=== PATIENT | female | born 1955 | race American Indian/Alaskan Native ===

== ENCOUNTER 2018-01-01 13:45 | Inpatient (IN) | payer OTHER ==
[2018-01-01 13:45] VITALS: BMI 40.2
--- NOTE | 2018-01-01 14:24 | C.PDOC ---
History Of Present Illness 62 Y/O FEMALE WITH HISTORY OF RENAL TRANSPLANT PRESENTS TO ED REFERRED BY DR HAWK FOR POSSIBLE URINARY RETENTION. PATIENT STATES LAST URINE OUTPUT WAS 2 DAYS AGO. PATIENT COMPLAINTS OF BLADDER FULLNESS. PATIENT ADMITS TO NAUSEA AND VOMITING, DENIES FEVER. PATIENT STATES "LAST TIME THIS HAPPENED ALL I NEEDED WAS FLUID AND NEVER NEEDED A CATHETER". EXAM MILD DIST NONTOXIC ABD REMAINDER NEG Time Seen by Provider: 01/01/18 14:09 Chief Complaint (Nursing): Female Genitourinary History Per: Patient History/Exam Limitations: no limitations Onset/Duration Of Symptoms: Days Current Symptoms Are (Timing): Still Present Associated Symptoms: Nausea, Vomiting, Urinary Symptoms Past Medical History Reviewed: Historical Data, Nursing Documentation, Vital Signs Vital Signs: Last Vital Signs Temp 98.7 F 01/01/18 14:16 Pulse 84 01/01/18 14:16 Resp 18 01/01/18 14:16 BP 173/80 H 01/01/18 14:07 Pulse Ox 98 01/01/18 16:01 - Medical History PMH: HTN Surgical History: No Surg Hx Family History: States: No Known Family Hx - Social History Hx Alcohol Use: No Hx Substance Use: No Review Of Systems Constitutional: Negative for: Fever, Chills Gastrointestinal: Positive for: Nausea, Vomiting Genitourinary: Positive for: Other (Urinary retention). Negative for: Dysuria Musculoskeletal: Negative for: Back Pain Skin: Negative for: Rash Physical Exam - Physical Exam Appears: Non-toxic, Other (In mild distress) Skin: Warm, Dry, No Rash Head: Atraumatic, Normacephalic Oral Mucosa: Moist Neck: Normal ROM, Supple Cardiovascular: Rhythm Regular Respiratory: Normal Breath Sounds, No Rales, No Rhonchi, No Wheezing Gastrointestinal/Abdominal: Soft, No Tenderness, No Guarding, No Rebound Back: No CVA Tenderness Extremity: Normal ROM, Capillary Refill (<2 seconds) Neurological/Psych: Oriented x3, Normal Speech, Normal Cognition ED Course And Treatment - Laboratory Results Result Diagrams: 01/01/18 14:36 01/01/18 15:02 O2 Sat by Pulse Oximetry: 98 (RA) Pulse Ox Interpretation: Normal Progress - Re-Evaluation Re-evaluation Note: 01/01/18 12:30 D/W DR HAWK FOR REFERRAL 01/01/18 14:22 PT OFFERED CATHETER FOR BLADDER RELIEF, STATES WOULD PREFER TO WAIT FOR BLADDER SCANNER AVAILABLILITY 01/01/18 15:27 BLADDER SCAN DONE BY ME, WITHIN NORMAL LIMITS. 01/01/18 15:59 D/W DR HAWK AWARE OF LAB FINDINGS. ADMIT MEDICINE, WILL CONSULT 01/01/18 16:[address] LUNA 01/01/18 16:08 D/W DR Gonzalez [place]LE C/F PMD AWARE OF ER FINDINGS WILL ADMIT - Data Reviewed Data Reviewed: Lab, Diagnostic imaging, EKG, Old records - Continuity of Care Discussed patient case with:: Patient, Family-HIPPA compliant, Covering for PMD Discussed pt. case with design sales consultant/specialty: Urology Disposition Counseled Patient/Family Regarding: Studies Performed, Diagnosis - Disposition Disposition: HOSPITALIZED Disposition Time: 16:08 Condition: STABLE Forms: [facility] ([place]) - POA Present On Arrival: None - Clinical Impression Clinical Impression: Renal failure - Scribe Statement The provider has reviewed the documentation as recorded by the Scribroc Durbin All medical record entries made by the Scribe were at my direction and personally dictated by me. I have reviewed the chart and agree that the record accurately reflects my personal performance of the history, physical exam, medical decision making, and the department course for this patient. I have also personally directed, reviewed, and agree with the discharge instructions and disposition. Decision To Admit - Pt Status Changed To: Hospital Disposition Of: Inpatient - Admit Certification Admit to Inpatient:: After my assessment, the patient will require hospitalization for at least two midnights. This is because of the severity of symptoms shown, intensity of services needed, and/or the medical risk in this patient being treated as an outpatient. - InPatient: Physician Admission Certification: I certify that this patient requires 2 or more midnights of care for the following reason:: SEE NOTE - . Bed Request Type: Regular Admitting Physician: Delvin Del Valle Patient Diagnosis: Renal failure
[2018-01-01 14:42] LABS: BASO # 0.1 K/uL (0.0-0.2); BASO % 0.9 % (0.0-2.0); EOS % 0.1 % (0.0-4.0); HEMOGLOBIN 12.2 g/dL (11.0-16.0); LYMPH # 0.7 K/uL (1.0-4.3); LYMPH % 5.7 % (20.0-40.0); MEAN CELL VOLUME 78.8 fL (81.0-99.0); MEAN CORPUSCULAR HEMOGLOBIN 27.2 pg (27.0-31.0); MEAN CORPUSCULAR HGB CONC 34.5 g/dL (33.0-37.0); MEAN PLATELET VOLUME 8.3 fL (7.2-11.7); MONO # 0.5 K/uL (0.0-0.8); MONO % 4.5 % (0.0-10.0); NEUT # 10.6 K/uL (1.8-7.0); NEUT % 88.8 % (50.0-75.0); NRBC % 0.1 % (0.0-2.0); PLATELET COUNT 160 K/uL (130-400); RBC 4.49 Mil/uL (3.80-5.20); RED CELL DISTRIBUTION WIDTH 16.4 % (11.5-14.5); WHITE BLOOD COUNT 11.9 K/uL (4.8-10.8)
[2018-01-01] MEDS ORDERED: Sodium Chloride 0.9% 1,000 ML IV SCH (15:15)
[2018-01-01] MEDS ORDERED: Sodium Chloride 0.9% 250 ML IV ONE ×2 (15:28→15:57)
[2018-01-01 15:33] LABS: LYMPHOCYTE 8 % (20-40); MONOCYTE 3 % (0-10); NEUTROPHIL 89 % (50-75); TOTAL CELLS COUNTED 100
[2018-01-01 15:34] LABS: PLATELET ESTIMATE NORMAL (NORMAL)
[2018-01-01 15:45] LABS: CALCIUM 6.1 mg/dl (8.6-10.4)
[2018-01-01] MEDS: Sodium Chloride 0.9% 1,000 ML IV SCH (17:58)
[2018-01-01] MEDS ORDERED: Sodium Chloride 0.9% 1,000 ML ONE (18:10)
[2018-01-01 19:06] LABS: SQUAMOUS EPITHIAL < 1 /hpf (0-5); URINE AMORPHOUS SEDIMENT RARE /ul (<OCC); URINE BACTERIA RARE (<OCC); URINE BILIRUBIN NEGATIVE (NEGATIVE); URINE BLOOD 2+ (NEGATIVE); URINE CLARITY Hazy (Clear); URINE COLOR YELLOW (YELLOW); URINE GLUCOSE (UA) NORMAL (Normal); URINE LEUKOCYTE ESTERASE 1+ Leu/uL (Negative); URINE PROTEIN NEGATIVE (NEGATIVE); URINE UROBILINOGEN NORMAL mg/dL (0.2-1.0)
[2018-01-01] MEDS ORDERED: Metoprolol Succinate 100 mg XL Tab PO SCH (22:00)
[2018-01-02] MEDS: Sodium Chloride 0.9% 1,000 ML IV SCH ×5 (01:45→17:15)
--- NOTE | 2018-01-02 10:30 | CP.PCM.CON ---
History of Present Illness - History of Present Illness History of Present Illness: 62 Y/O FEMALE WITH HISTORY OF RENAL TRANSPLANT PRESENTS TO ED REFERRED BY DR HAWK FOR POSSIBLE URINARY RETENTION. PATIENT STATES LAST URINE OUTPUT WAS 2 DAYS AGO. PATIENT COMPLAINTS OF BLADDER FULLNESS. PATIENT ADMITS TO NAUSEA AND VOMITING, DENIES FEVER. PATIENT STATES "LAST TIME THIS HAPPENED ALL I NEEDED WAS FLUID AND NEVER NEEDED A CATHETER". PMH: DONOR KIDNEY TRANSPLANT 2010- NO REJECTION EPISODES HTN CKD 3 DM 2 POST TRANSPLANT SEC HPT DIVERTICULAR DISEASE URINARY RETENTION- PRIOR EPISODE NATE PSH: KIDNEY TRANSPLANT COLECTOMY AV FISTULA AP FH: UNCLE HAD CKD- WAS ON DIALYSIS SOCIAL- NEGATIVE FOR ETOH, SMOKING, ILLICIT DRUG USE Review of Systems - Constitutional Constitutional: Lethargy, Weakness - EENT Eyes: Decreased Night Vision, Dry Eye Ears: absent: As Per HPI, Decreased Hearing, Ear Discharge, Ear Pain, Tinnitus, Abnormal Hearing, Disequilibrium, Dizziness, Other Nose/Mouth/Throat: absent: As Per HPI, Epistaxis, Nasal Congestion, Nasal Discharge, Nasal Obstruction, Nasal Trauma, Nose Pain, Post Nasal Drip, Sinus Pain, Sinus Pressure, Bleeding Gums, Change in Voice, Dental Pain, Dry Mouth, Dysphagia, Halitosis, Hoarsness, Lip Swelling, Mouth Lesions, Mouth Pain, Odynophagia, Sore Throat, Throat Swelling, Tongue Swelling, Facial Pain, Neck Pain, Neck Mass, Other - Cardiovascular Cardiovascular: absent: As Per HPI, Acrocyanosis, Chest Pain, Chest Pain at Rest , Chest Pain with Activity, Claudication, Diaphoresis, Dyspnea, Dyspnea on Exertion, Edema, Irregular Heart Rhythm, Pain Radiating to Arm/Neck/Jaw, Leg Edema, Leg Ulcers, Lightheadedness, Orthopnea, Palpitations, Paroxysmal Nocturnal Dyspnea, Pedal Edema, Radiating Pain, Rapid Heart Rate, Slow Heart Rate, Syncope, Other - Respiratory Respiratory: absent: As Per HPI, Cough, Dyspnea, Hemoptysis, Dyspnea on Exertion , Wheezing, Snoring, Stridor, Pain on Inspiration, Chest Congestion, Excessive Mucous Production, Change in Mucous Color, Pain with Coughing, Other - Gastrointestinal Gastrointestinal: absent: As Per HPI, Abdominal Pain, Belching, Bloating, Change in Bowel Habits, Change in Stool Character, Coffee Ground Emesis, Constipation, Cramping, Diarrhea, Dyspepsia, Dysphagia, Early Satiety, Excessive Flatus, Fecal Incontinence, Heartburn, Hematemesis, Hematochezia, Loose Stools, Melena, Nausea, Odynophagia, Temesmus, Vomiting, Other - Genitourinary Genitourinary: As Per HPI - Musculoskeletal Musculoskeletal: Muscle Cramps, Muscle Weakness, Myalgias - Integumentary Integumentary: absent: As Per HPI, Acne, Alopecia, Bleeding Lesions, Change in Hair, Change in Nails, Change in Pigmentation, Changing Lesions, Dry Skin, Erythema, Furuncle, Hirsutism, Lesions, New Lesions, Non-Healing Lesions, Photosensitivity, Pruritus, Rash, Skin Pain, Skin Ulcer, Sores, Striae, Swelling , Unusual Bruising, Wounds, Jaundice, Other - Neurological Neurological: absent: As Per HPI, Abnormal Gait, Abnormal Hearing, Abnormal Movements, Abnormal Speech, Behavioral Changes, Burning Sensations, Confusion, Convulsions, Disequilibrium, Dizziness, Numbness, Focal Weakness, Frequent Falls , Headaches, Lack of Coordination, Loss of Vision, Memory Loss, Paresthesias, Radicular Pain, Restless Legs, Sensory Deficit, Syncope, Tingling, Tremor, Vertigo, Weakness, Other Visual Disturbances, Other - Endocrine Endocrine: absent: As Per HPI, Change in Body Appearance, Change in Libido, Cold Intolorance, Deepening of Voice, Excessive Sweating, Fatigue, Flushing, Heat Intolorance, Increase in Ring/Shoe/Hat Size, Palpitations, Polydipsia, Polyphagia, Polyuria, Other Past Patient History - Infectious Disease Hx of Infectious Diseases: None - Past Medical History & Family History Past Medical History?: Yes Pertinent Family History: uncle was on dialysis - Past Social History Smoking Status: Never Smoked Chewing Tobacco Use: No Cigar Use: No Alcohol: None Drugs: Denies Home Situation {Lives}: With Family - CARDIAC Hx Hypertension: Yes - RENAL Hx Dialysis: Yes Hx Renal Failure: Yes Other/Comment: kidney transplant - MUSCULOSKELETAL/RHEUMATOLOGICAL Hx Falls: No - PSYCHIATRIC Hx Substance Use: No - SURGICAL HISTORY Hx Kidney Transplant: Yes (2010) Hx Vascular Access Device: Yes (fistula left arm) - ANESTHESIA Hx Anesthesia: Yes Meds Allergies/Adverse Reactions: Allergies Allergy/AdvReac Type Severity Reaction Status Date / Time Penicillins Allergy Verified 01/01/18 14:15 - Medications Medications: Current Medications Amlodipine Besylate (Norvasc) 5 mg PO DAILY [facility] Last Admin: 01/02/18 09:57 Dose: 5 mg Calcitriol (Rocaltrol) 0.25 mcg PO DAILY [facility] Last Admin: 01/02/18 09:56 Dose: 0.25 mcg Heparin Sodium (Porcine) (Heparin) 5,000 units SC Q12 [facility] Last Admin: 01/02/18 09:57 Dose: 5,000 units Hydralazine HCl (Apresoline) 50 mg PO Q12H [facility] Last Admin: 01/02/18 09:59 Dose: 50 mg Sodium Chloride (Sodium Chloride 0.9%) 1,000 mls @ 125 mls/hr IV .Q8H [facility] Last Admin: 01/02/18 09:57 Dose: Not Given Metoprolol Tartrate (Lopressor) 50 mg PO Q12H [facility] Last Admin: 01/02/18 09:59 Dose: 50 mg Prednisone (Prednisone Tab) 5 mg PO DAILY [facility] Tacrolimus (Prograf) 5 mg PO Q12 [facility] Last Admin: 01/02/18 09:56 Dose: 5 mg Tacrolimus (Prograf Cap) 3 mg PO Q12 [facility] Last Admin: 01/02/18 09:55 Dose: 3 mg Physical Exam - Constitutional Appears: No Acute Distress, Chronically Ill - Head Exam Head Exam: ATRAUMATIC, NORMAL INSPECTION - Eye Exam Eye Exam: EOMI, Normal appearance - Neck Exam Neck exam: Positive for: Normal Inspection. Negative for: Tenderness - Respiratory Exam Respiratory Exam: Clear to Auscultation Bilateral, NORMAL BREATHING PATTERN - Cardiovascular Exam Cardiovascular Exam: REGULAR RHYTHM, +S1 - GI/Abdominal Exam GI & Abdominal Exam: Soft. absent: Tenderness - Extremities Exam Extremities exam: Positive for: normal inspection. Negative for: tenderness - Neurological Exam Neurological exam: Alert, Oriented x3 - Skin Skin Exam: Dry, Warm Results - Vital Signs Recent Vital Signs: Last Vital Signs Temp 98.7 F 01/02/18 08:00 Pulse 71 01/02/18 08:00 Resp 20 01/02/18 08:00 BP 156/77 H 01/02/18 08:00 Pulse Ox 98 01/02/18 08:00 - Labs Result Diagrams: 01/01/18 14:36 01/01/18 15:02 Labs: Laboratory Results - last 24 hr 01/01/18 01/01/18 01/01/18 14:36 15:02 18:56 WBC 11.9 H RBC 4.49 Hgb 12.2 Hct 35.4 MCV 78.8 L MCH 27.2 MCHC 34.5 RDW 16.4 H Plt Count 160 MPV 8.3 Neut % (Auto) 88.8 H Lymph % (Auto) 5.[address] % (Auto) 4.5 Eos % (Auto) 0.1 Baso % (Auto) 0.9 Neut # (Auto) 10.6 H Lymph # (Auto) 0.[address] # (Auto) 0.5 Eos # (Auto) 0.0 Baso # (Auto) 0.1 Neutrophils % (Manual) 89 H Lymphocytes % (Manual) 8 L Monocytes % (Manual) 3 Platelet Estimate Normal Sodium 128 L Potassium 5.0 Chloride 92 L Carbon Dioxide 18 L Anion Gap 23 H BUN 48 H Creatinine 8.0 H* Est GFR ( Amer) 6 Est GFR (Non-Af Amer) 5 Random Glucose 157 H Calcium 6.1 L Urine Color Yellow Urine Clarity Hazy Urine pH 5.0 Ur Specific [place] 1.004 Urine Protein Negative Urine Glucose (UA) Normal Urine Ketones Negative Urine Blood 2+ H Urine Nitrate Negative Urine Bilirubin Negative Urine Urobilinogen Normal Ur Leukocyte Esterase 1+ H Urine WBC (Auto) 11 H Urine RBC (Auto) 15 H Ur Squamous Epith Cells < 1 Amorphous Sediment Rare H Urine Bacteria Rare Assessment & Plan (1) NATE (acute kidney injury) Status: Acute (2) History of kidney transplant Status: Acute (3) Urinary retention Status: Acute (4) Dehydration Status: Acute (5) DM type 2 (diabetes mellitus, type 2) Status: Acute (6) HTN (hypertension) Status: Acute - Assessment and Plan (Free Text) Plan: Continue IV NS hydration repeat chemistries urine studies renal TP US FK level continue transplant meds
[2018-01-02 11:49] LABS: ALBUMIN 3.5 g/dL (3.5-5.0); CALCIUM 6.2 mg/dl (8.6-10.4)
--- NOTE | 2018-01-02 15:15 | CP.PCM.HP ---
History of Present Illness - History of Present Illness History of Present Illness: HPI: 62 y/o female s/p renal tranplant 2010, Hypertension, Diabetes c/o vomitting 1 day. Also c/o mild abdominal pain and no urinary output. No fever. Present on Admission - Present on Admission Any Indicators Present on Admission: Yes History of DVT/PE: No History of Uncontrolled Diabetes: No Urinary Catheter: Yes Review of Systems - Review of Systems All systems: reviewed and no additional remarkable complaints except (c/o abdominal pain, GI upsets) Past Patient History - Infectious Disease Hx of Infectious Diseases: None - Past Medical History & Family History Past Medical History?: Yes - Past Social History Smoking Status: Never Smoked Chewing Tobacco Use: No Cigar Use: No Alcohol: None Drugs: Denies Home Situation {Lives}: With Family - CARDIAC Hx Hypertension: Yes - RENAL Hx Dialysis: Yes Hx Renal Failure: Yes Other/Comment: kidney transplant - MUSCULOSKELETAL/RHEUMATOLOGICAL Hx Falls: No - PSYCHIATRIC Hx Substance Use: No - SURGICAL HISTORY Hx Kidney Transplant: Yes (2010) Hx Vascular Access Device: Yes (fistula left arm) - ANESTHESIA Hx Anesthesia: Yes Meds Home Medications: Home Medication List Medication Instructions Recorded Confirmed Type Calcium Acetate [Phoslo] 667 mg PO TIDCC tab 01/06/18 Rx Heparin 5,000 units SC Q12 vial 01/06/18 Rx Metoprolol Tartrate [Lopressor] 50 mg PO Q12H tab 01/06/18 Rx Metoprolol Tartrate [Lopressor] 75 mg PO Q12H tab 01/06/18 Rx Tacrolimus [Prograf Cap] 3 mg PO Q12 cap 01/06/18 Rx Tacrolimus [Prograf Cap] 5 mg PO Q12 cap 01/06/18 Rx Tacrolimus [Prograf] 5 mg PO Q12 cap 01/06/18 Rx Tacrolimus [Prograf] 5 mg PO Q12 cap 01/06/18 Rx amLODIPine [Norvasc] 5 mg PO DAILY tab 01/06/18 Rx hydrALAZINE [Apresoline] 50 mg PO Q12H tab 01/06/18 Rx predniSONE [predniSONE Tab] 5 mg PO DAILY tab 01/06/18 Rx Allergies/Adverse Reactions: Allergies Allergy/AdvReac Type Severity Reaction Status Date / Time Penicillins Allergy Verified 01/01/18 14:15 Physical Exam - Constitutional Appears: No Acute Distress - Head Exam Head Exam: NORMAL INSPECTION - Eye Exam Eye Exam: Normal appearance - Neck Exam Neck exam: Positive for: Normal Inspection - Respiratory Exam Respiratory Exam: NORMAL BREATHING PATTERN - GI/Abdominal Exam GI & Abdominal Exam: Soft - Rectal Exam Rectal Exam: Deferred - Extremities Exam Extremities exam: Positive for: normal inspection - Neurological Exam Neurological exam: Alert Results - Vital Signs Recent Vital Signs: Last Vital Signs Temp 98.7 F 01/02/18 08:00 Pulse 71 01/02/18 08:00 Resp 20 01/02/18 08:00 BP 156/77 H 01/02/18 08:00 Pulse Ox 98 01/02/18 08:00 - Labs Result Diagrams: 01/05/18 08:48 01/05/18 08:48 Labs: Laboratory Results - last 24 hr 01/01/18 01/01/18 01/01/18 14:36 15:02 18:56 Neutrophils % (Manual) 89 H Lymphocytes % (Manual) 8 L Monocytes % (Manual) 3 Platelet Estimate Normal Sodium 128 L Potassium 5.0 Chloride 92 L Carbon Dioxide 18 L Anion Gap 23 H BUN 48 H Creatinine 8.0 H* Est GFR ( Amer) 6 Est GFR (Non-Af Amer) 5 Random Glucose 157 H Calcium 6.1 L Total Bilirubin AST ALT Alkaline Phosphatase Total Protein Albumin Globulin Albumin/Globulin Ratio Urine Color Yellow Urine Clarity Hazy Urine pH 5.0 Ur Specific [place] 1.004 Urine Protein Negative Urine Glucose (UA) Normal Urine Ketones Negative Urine Blood 2+ H Urine Nitrate Negative Urine Bilirubin Negative Urine Urobilinogen Normal Ur Leukocyte Esterase 1+ H Urine WBC (Auto) 11 H Urine RBC (Auto) 15 H Ur Squamous Epith Cells < 1 Amorphous Sediment Rare H Urine Bacteria Rare 01/02/18 11:15 Neutrophils % (Manual) Lymphocytes % (Manual) Monocytes % (Manual) Platelet Estimate Sodium 140 Potassium 4.3 Chloride 102 Carbon Dioxide 21 L Anion Gap 22 H BUN 45 H Creatinine 6.2 H Est GFR ( Amer) 8 Est GFR (Non-Af Amer) 7 Random Glucose 127 H Calcium 6.2 L Total Bilirubin 0.9 AST 18 ALT 6 L Alkaline Phosphatase 63 Total Protein 6.9 Albumin 3.5 Globulin 3.4 Albumin/Globulin Ratio 1.0 Urine Color Urine Clarity Urine pH Ur Specific [place] Urine Protein Urine Glucose (UA) Urine Ketones Urine Blood Urine Nitrate Urine Bilirubin Urine Urobilinogen Ur Leukocyte Esterase Urine WBC (Auto) Urine RBC (Auto) Ur Squamous Epith Cells Amorphous Sediment Urine Bacteria Assessment & Plan (1) NATE (acute kidney injury) Status: Acute (2) Dehydration Status: Acute (3) HTN (hypertension) Status: Chronic (4) DM type 2 (diabetes mellitus, type 2) Status: Chronic - Assessment and Plan (Free Text) Assessment: A/P: Continue IV hydration. Continie medications. Appreciate Nephrology notes
--- NOTE | 2018-01-02 15:47 | US ---
PROCEDURE: Ultrasound of the Kidneys HISTORY: batsheva COMPARISON: None available. TECHNIQUE: Sonogram of the kidneys. FINDINGS: A transplant kidney is identified at the right lower quadrant/right hemipelvis measures 11.3 x 7.0 x 7.0 cm. Corticomedullary echotexture is slightly diminished in terms of definition. Mild hydronephrosis is appreciated. No parity nephric fluid collection identified or definite urolithiasis. OTHER FINDINGS: None. IMPRESSION: Mild hydronephrosis identified within the transplant kidney at the right lower quadrant abdomen/ upper right pelvis. Somewhat diminished corticomedullary definition of uncertain origin. No urolithiasis appreciable or perinephric fluid collection.
[2018-01-02 16:34] LABS: URINE BACTERIA RARE (<OCC); URINE BILIRUBIN NEGATIVE (NEGATIVE); URINE BLOOD 3+ (NEGATIVE); URINE CLARITY Clear (Clear); URINE COLOR Colorless (YELLOW); URINE GLUCOSE (UA) NORMAL (Normal); URINE LEUKOCYTE ESTERASE NEG Leu/uL (Negative); URINE PROTEIN NEGATIVE (NEGATIVE); URINE UROBILINOGEN NORMAL mg/dL (0.2-1.0)
[2018-01-03] MEDS: Sodium Chloride 0.9% 1,000 ML IV SCH ×6 (01:15→21:45)
--- NOTE | 2018-01-03 08:01 | CP.PCM.PN ---
Subjective - Date & Time of Evaluation Date of Evaluation: 01/03/18 Time of Evaluation: 08:34 - Subjective Subjective: Pt no complain; no CP, no SOB, * (+) good urine output Objective - Vital Signs/Intake and Output Vital Signs (last 24 hours): Temp Pulse Resp BP Pulse Ox 98.5 F 72 20 150/72 96 01/03/18 07:41 01/03/18 07:41 01/03/18 07:41 01/03/18 07:41 01/03/18 07:41 Intake and Output: 01/03/18 01/03/18 06:59 18:59 Intake Total 2140 Output Total 3200 Balance -1060 - Medications Medications: Current Medications Amlodipine Besylate (Norvasc) 5 mg PO DAILY [facility] Last Admin: 01/02/18 09:57 Dose: 5 mg Calcitriol (Rocaltrol) 0.25 mcg PO DAILY [facility] Last Admin: 01/02/18 09:56 Dose: 0.25 mcg Heparin Sodium (Porcine) (Heparin) 5,000 units SC Q12 [facility] Last Admin: 01/02/18 21:39 Dose: 5,000 units Hydralazine HCl (Apresoline) 50 mg PO Q12H [facility] Last Admin: 01/02/18 21:37 Dose: 50 mg Sodium Chloride (Sodium Chloride 0.9%) 1,000 mls @ 125 mls/hr IV .Q8H [facility] Last Admin: 01/03/18 03:13 Dose: 125 mls/hr Metoprolol Tartrate (Lopressor) 50 mg PO Q12H [facility] Last Admin: 01/02/18 21:37 Dose: 50 mg Prednisone (Prednisone Tab) 5 mg PO DAILY [facility] Last Admin: 01/02/18 11:30 Dose: 5 mg Tacrolimus (Prograf) 5 mg PO Q12 [facility] Last Admin: 01/02/18 21:37 Dose: 5 mg Tacrolimus (Prograf Cap) 3 mg PO Q12 [facility] Last Admin: 01/02/18 21:37 Dose: 3 mg - Labs Labs: 01/01/18 14:36 01/02/18 11:15 - Constitutional Appears: No Acute Distress - Eye Exam Eye Exam: Normal appearance - ENT Exam ENT Exam: Mucous Membranes Moist - Neck Exam Neck Exam: Full ROM, Lymphadenopathy. absent: Meningismus, Thyromegaly - Respiratory Exam Respiratory Exam: Clear to Ausculation Bilateral. absent: Rhonchi, Wheezes - Cardiovascular Exam Cardiovascular Exam: REGULAR RHYTHM, +S1, +S2. absent: Gallop, JVD - GI/Abdominal Exam GI & Abdominal Exam: Soft. absent: Tenderness, Mass - Extremities Exam Extremities Exam: Full ROM, Normal Capillary Refill. absent: Pedal Edema Assessment and Plan - Assessment and Plan (Free Text) Plan: ATN ; Dehydration s/p transplant; HTN Stop marin; Cont hydration and serial labs
[2018-01-03 08:26] LABS: MEAN CELL VOLUME 80.2 fL (81.0-99.0); MEAN CORPUSCULAR HEMOGLOBIN 27.8 pg (27.0-31.0); MEAN CORPUSCULAR HGB CONC 34.7 g/dL (33.0-37.0); MEAN PLATELET VOLUME 8.5 fL (7.2-11.7); RBC 3.63 Mil/uL (3.80-5.20); RED CELL DISTRIBUTION WIDTH 16.9 % (11.5-14.5)
[2018-01-03 08:31] LABS: HEMOGLOBIN 10.1 g/dL (11.0-16.0); WHITE BLOOD COUNT 4.8 K/uL (4.8-10.8)
[2018-01-03 10:14] LABS: ALBUMIN 3.3 g/dL (3.5-5.0); CALCIUM 6.3 mg/dl (8.6-10.4)
--- NOTE | 2018-01-03 13:28 | CP.PCM.PN ---
Subjective - Date & Time of Evaluation Date of Evaluation: 01/03/18 Time of Evaluation: 13:25 - Subjective Subjective: Feels much better Excellent UO marin taken out creat decreased to 3.5 from 8 Renal US - mild hydro no n, v, f, chills, diarrhea, CPs, SOB Objective - Vital Signs/Intake and Output Vital Signs (last 24 hours): Temp Pulse Resp BP Pulse Ox 98.5 F 72 20 150/72 96 01/03/18 07:41 01/03/18 07:41 01/03/18 07:41 01/03/18 07:41 01/03/18 07:41 Intake and Output: 01/03/18 01/03/18 06:59 18:59 Intake Total 2140 Output Total 3200 Balance -1060 - Medications Medications: Current Medications Amlodipine Besylate (Norvasc) 5 mg PO DAILY [facility] Last Admin: 01/03/18 10:52 Dose: 5 mg Calcitriol (Rocaltrol) 0.25 mcg PO DAILY [facility] Last Admin: 01/03/18 10:54 Dose: 0.25 mcg Heparin Sodium (Porcine) (Heparin) 5,000 units SC Q12 [facility] Last Admin: 01/03/18 10:53 Dose: 5,000 units Hydralazine HCl (Apresoline) 50 mg PO Q12H [facility] Last Admin: 01/03/18 10:52 Dose: 50 mg Sodium Chloride (Sodium Chloride 0.9%) 1,000 mls @ 125 mls/hr IV .Q8H [facility] Last Admin: 01/03/18 10:56 Dose: 125 mls/hr Metoprolol Tartrate (Lopressor) 50 mg PO Q12H [facility] Last Admin: 01/03/18 10:53 Dose: 50 mg Prednisone (Prednisone Tab) 5 mg PO DAILY [facility] Last Admin: 01/03/18 10:54 Dose: 5 mg Tacrolimus (Prograf) 5 mg PO Q12 [facility] Last Admin: 01/03/18 10:54 Dose: 5 mg Tacrolimus (Prograf Cap) 3 mg PO Q12 [facility] Last Admin: 01/03/18 10:54 Dose: 3 mg - Labs Labs: 01/03/18 08:16 01/03/18 08:16 - Constitutional Appears: No Acute Distress, Chronically Ill - Head Exam Head Exam: ATRAUMATIC, NORMAL INSPECTION - Eye Exam Eye Exam: EOMI, Normal appearance - Neck Exam Neck Exam: Normal Inspection. absent: Tenderness - Cardiovascular Exam Cardiovascular Exam: REGULAR RHYTHM, +S1 - GI/Abdominal Exam GI & Abdominal Exam: Soft. absent: Tenderness - Extremities Exam Extremities Exam: Normal Inspection. absent: Tenderness - Neurological Exam Neurological Exam: Alert, CN II-XII Intact - Skin Skin Exam: Dry, Warm Assessment and Plan (1) NATE (acute kidney injury) Status: Acute (2) History of kidney transplant Status: Acute (3) Urinary retention Status: Acute (4) Dehydration Status: Acute (5) DM type 2 (diabetes mellitus, type 2) Status: Chronic (6) HTN (hypertension) Status: Chronic - Assessment and Plan (Free Text) Plan: Add phoslo repeat chemistries Decrease IV fluids check FK level
[2018-01-04] MEDS: Sodium Chloride 0.9% 1,000 ML IV SCH ×4 (02:50→23:07)
--- NOTE | 2018-01-04 08:00 | CP.PCM.PN ---
Subjective - Date & Time of Evaluation Date of Evaluation: 01/04/18 Time of Evaluation: 07:40 - Subjective Subjective: Pt no complain except frequency; no dysuria. No cough, no CP, no SOB, no edema, no cough; Goo appetite Baseline Cr 1.3; Objective - Vital Signs/Intake and Output Vital Signs (last 24 hours): Temp Pulse Resp BP Pulse Ox 98.4 F 75 20 124/69 96 01/03/18 23:35 01/03/18 23:35 01/03/18 23:35 01/03/18 23:35 01/03/18 23:35 Intake and Output: 01/04/18 01/04/18 06:59 18:59 Intake Total 780 Balance 780 - Medications Medications: Current Medications Amlodipine Besylate (Norvasc) 5 mg PO DAILY [facility] Last Admin: 01/03/18 10:52 Dose: 5 mg Calcitriol (Rocaltrol) 0.25 mcg PO DAILY [facility] Last Admin: 01/03/18 10:54 Dose: 0.25 mcg Calcium Acetate (Phoslo) 667 mg PO TIDCC [facility] Last Admin: 01/03/18 17:37 Dose: 667 mg Heparin Sodium (Porcine) (Heparin) 5,000 units SC Q12 [facility] Last Admin: 01/03/18 21:40 Dose: 5,000 units Hydralazine HCl (Apresoline) 50 mg PO Q12H [facility] Last Admin: 01/03/18 21:40 Dose: 50 mg Sodium Chloride (Sodium Chloride 0.9%) 1,000 mls @ 75 mls/hr IV .[id number] [facility] Last Admin: 01/04/18 02:50 Dose: Not Given Metoprolol Tartrate (Lopressor) 50 mg PO Q12H [facility] Last Admin: 01/03/18 21:39 Dose: 50 mg Prednisone (Prednisone Tab) 5 mg PO DAILY [facility] Last Admin: 01/03/18 10:54 Dose: 5 mg Tacrolimus (Prograf) 5 mg PO Q12 [facility] Last Admin: 01/03/18 21:40 Dose: 5 mg Tacrolimus (Prograf Cap) 3 mg PO Q12 [facility] Last Admin: 01/03/18 21:40 Dose: 3 mg - Labs Labs: 01/03/18 08:16 01/03/18 08:16 - Constitutional Appears: No Acute Distress - Eye Exam Eye Exam: Normal appearance - ENT Exam ENT Exam: Mucous Membranes Moist - Neck Exam Neck Exam: Full ROM. absent: Lymphadenopathy, Normal Inspection - Respiratory Exam Respiratory Exam: Clear to Ausculation Bilateral. absent: Rales, Rhonchi, Wheezes - Cardiovascular Exam Cardiovascular Exam: +S1, +S2, Murmur. absent: Gallop, REGULAR RHYTHM, JVD - GI/Abdominal Exam GI & Abdominal Exam: Soft. absent: Tenderness - Extremities Exam Extremities Exam: Calf Tenderness, Normal Capillary Refill. absent: Full ROM, Joint Swelling, Pedal Edema Assessment and Plan - Assessment and Plan (Free Text) Assessment: Acute Renal failure; s/p transplant Cont meds/ hydration
--- NOTE | 2018-01-04 09:54 | CP.PCM.PN ---
Subjective - Date & Time of Evaluation Date of Evaluation: 01/04/18 Time of Evaluation: 09:51 - Subjective Subjective: Alert; still with excellent UO CMP pending today BP labile no n, v, f, chills, CP, SOB, diarrhea Objective - Vital Signs/Intake and Output Vital Signs (last 24 hours): Temp Pulse Resp BP Pulse Ox 98.7 F 76 20 159/78 H 98 01/04/18 08:11 01/04/18 08:11 01/04/18 08:11 01/04/18 08:11 01/04/18 08:11 Intake and Output: 01/04/18 01/04/18 06:59 18:59 Intake Total 780 Balance 780 - Medications Medications: Current Medications Amlodipine Besylate (Norvasc) 5 mg PO DAILY [facility] Last Admin: 01/04/18 09:18 Dose: 5 mg Calcitriol (Rocaltrol) 0.25 mcg PO DAILY [facility] Last Admin: 01/04/18 09:17 Dose: 0.25 mcg Calcium Acetate (Phoslo) 667 mg PO TIDCC [facility] Last Admin: 01/04/18 09:00 Dose: 667 mg Heparin Sodium (Porcine) (Heparin) 5,000 units SC Q12 [facility] Last Admin: 01/04/18 09:18 Dose: 5,000 units Hydralazine HCl (Apresoline) 50 mg PO Q12H [facility] Last Admin: 01/04/18 09:32 Dose: 50 mg Sodium Chloride (Sodium Chloride 0.9%) 1,000 mls @ 75 mls/hr IV .[id number] [facility] Last Admin: 01/04/18 02:50 Dose: Not Given Metoprolol Tartrate (Lopressor) 50 mg PO Q12H [facility] Last Admin: 01/04/18 09:32 Dose: 50 mg Prednisone (Prednisone Tab) 5 mg PO DAILY [facility] Last Admin: 01/04/18 09:17 Dose: 5 mg Tacrolimus (Prograf Cap) 3 mg PO Q12 [facility] Last Admin: 01/04/18 09:18 Dose: 3 mg Tacrolimus (Prograf Cap) 5 mg PO Q12 [facility] Last Admin: 01/04/18 09:35 Dose: 5 mg - Labs Labs: 01/03/18 08:16 01/03/18 08:16 - Constitutional Appears: In Acute Distress, Chronically Ill - Head Exam Head Exam: ATRAUMATIC, NORMAL INSPECTION - Eye Exam Eye Exam: EOMI, Normal appearance - Neck Exam Neck Exam: Normal Inspection. absent: Tenderness - Cardiovascular Exam Cardiovascular Exam: REGULAR RHYTHM, +S1 - GI/Abdominal Exam GI & Abdominal Exam: Soft. absent: Tenderness - Extremities Exam Extremities Exam: Normal Inspection. absent: Tenderness - Neurological Exam Neurological Exam: Awake, CN II-XII Intact - Skin Skin Exam: Dry, Warm Assessment and Plan (1) NATE (acute kidney injury) Status: Acute (2) History of kidney transplant Status: Acute (3) Urinary retention Status: Acute (4) Dehydration Status: Acute (5) DM type 2 (diabetes mellitus, type 2) Status: Chronic (6) HTN (hypertension) Status: Chronic - Assessment and Plan (Free Text) Plan: follow up chemistries Adjust BP meds IV fluids for now Pt agrees for consult for urinary retention
[2018-01-04 11:57] LABS: ALBUMIN 3.9 g/dL (3.5-5.0); CALCIUM 6.6 mg/dl (8.6-10.4)
[2018-01-05] MEDS: Sodium Chloride 0.9% 1,000 ML IV SCH ×2 (05:33→23:51)
[2018-01-05 08:57] LABS: BASO % 0.3 % (0.0-2.0); EOS # 0.1 K/uL (0.0-0.7); EOS % 2.5 % (0.0-4.0); HEMOGLOBIN 10.8 g/dL (11.0-16.0); LYMPH # 1.1 K/uL (1.0-4.3); LYMPH % 23.2 % (20.0-40.0); MEAN CELL VOLUME 81.4 fL (81.0-99.0); MEAN CORPUSCULAR HEMOGLOBIN 27.9 pg (27.0-31.0); MEAN CORPUSCULAR HGB CONC 34.3 g/dL (33.0-37.0); MEAN PLATELET VOLUME 7.6 fL (7.2-11.7); MONO # 0.3 K/uL (0.0-0.8); MONO % 6.8 % (0.0-10.0); NEUT # 3.2 K/uL (1.8-7.0); NEUT % 67.2 % (50.0-75.0); NRBC % 0.1 % (0.0-2.0); RBC 3.88 Mil/uL (3.80-5.20); RED CELL DISTRIBUTION WIDTH 16.6 % (11.5-14.5); WHITE BLOOD COUNT 4.7 K/uL (4.8-10.8)
[2018-01-05 09:19] LABS: ALBUMIN 3.9 g/dL (3.5-5.0); CALCIUM 6.7 mg/dl (8.6-10.4)
[2018-01-05 09:41] VITALS: RESP 20
[2018-01-06 07:23] VITALS: PULSE 74; TEMP 98.6; O2SAT 96
[2018-01-06] MEDS: Sodium Chloride 0.9% 1,000 ML IV SCH (08:34)
--- NOTE | 2018-01-06 09:10 | CP.PCM.PN ---
Subjective - Date & Time of Evaluation Date of Evaluation: 01/06/18 Time of Evaluation: 09:01 - Subjective Subjective: Pt feels well. no CP, no SOB, no edema; good urine out put with out dysuria Objective - Vital Signs/Intake and Output Vital Signs (last 24 hours): Temp Pulse Resp BP Pulse Ox 98.6 F 74 20 170/83 H 96 01/06/18 07:19 01/06/18 07:19 01/06/18 07:19 01/06/18 07:19 01/06/18 07:19 Intake and Output: 01/06/18 01/06/18 06:59 18:59 Intake Total 1350 Balance 1350 - Medications Medications: Current Medications Amlodipine Besylate (Norvasc) 5 mg PO DAILY [facility] Last Admin: 01/05/18 09:15 Dose: 5 mg Calcitriol (Rocaltrol) 0.25 mcg PO DAILY [facility] Last Admin: 01/05/18 09:14 Dose: 0.25 mcg Calcium Acetate (Phoslo) 667 mg PO TIDCC [facility] Last Admin: 01/06/18 08:27 Dose: 667 mg Heparin Sodium (Porcine) (Heparin) 5,000 units SC Q12 [facility] Last Admin: 01/05/18 22:45 Dose: 5,000 units Hydralazine HCl (Apresoline) 50 mg PO Q12H [facility] Last Admin: 01/05/18 22:43 Dose: 50 mg Sodium Chloride (Sodium Chloride 0.9%) 1,000 mls @ 75 mls/hr IV .[id number] [facility] Last Admin: 01/06/18 08:34 Dose: Not Given Metoprolol Tartrate (Lopressor) 75 mg PO Q12H [facility] Last Admin: 01/05/18 22:42 Dose: 75 mg Prednisone (Prednisone Tab) 5 mg PO DAILY [facility] Last Admin: 01/05/18 09:14 Dose: 5 mg Tacrolimus (Prograf Cap) 3 mg PO Q12 [facility] Last Admin: 01/05/18 22:41 Dose: 3 mg Tacrolimus (Prograf) 5 mg PO Q12 [facility] Last Admin: 01/05/18 09:17 Dose: 5 mg - Labs Labs: 01/05/18 08:48 01/05/18 08:48 - Constitutional Appears: No Acute Distress - Eye Exam Eye Exam: Normal appearance - ENT Exam ENT Exam: Mucous Membranes Moist - Neck Exam Neck Exam: Full ROM. absent: Lymphadenopathy, Normal Inspection - Respiratory Exam Respiratory Exam: Clear to Ausculation Bilateral. absent: Rales, Rhonchi, Wheezes - Cardiovascular Exam Cardiovascular Exam: REGULAR RHYTHM, +S1, +S2. absent: Gallop, JVD, Murmur - GI/Abdominal Exam GI & Abdominal Exam: Soft. absent: Tenderness, Mass - Extremities Exam Extremities Exam: Full ROM, Normal Capillary Refill. absent: Calf Tenderness, Joint Swelling, Pedal Edema Assessment and Plan - Assessment and Plan (Free Text) Plan: Acute renal failure; Dehydration s/p Transplant; HTN For discharge if okay w/ eileen Cont med Advise close OPD f/up - pt promise to do so
[2018-01-06 09:25] VITALS: BP 166/79
--- NOTE | 2018-01-06 11:35 | CP.PCM.CON ---
Past Patient History - Infectious Disease Hx of Infectious Diseases: None - Past Medical History & Family History Past Medical History?: Yes - Past Social History Smoking Status: Never Smoked Chewing Tobacco Use: No Cigar Use: No Alcohol: None Drugs: Denies Home Situation {Lives}: With Family - CARDIAC Hx Hypertension: Yes - RENAL Hx Dialysis: Yes Hx Renal Failure: Yes Other/Comment: kidney transplant - MUSCULOSKELETAL/RHEUMATOLOGICAL Hx Falls: No - PSYCHIATRIC Hx Substance Use: No - SURGICAL HISTORY Hx Kidney Transplant: Yes (2010) Hx Vascular Access Device: Yes (fistula left arm) - ANESTHESIA Hx Anesthesia: Yes Meds Home Medications: Home Medication List Medication Instructions Recorded Confirmed Type Calcium Acetate [Phoslo] 667 mg PO TIDCC tab 01/06/18 Rx Heparin 5,000 units SC Q12 vial 01/06/18 Rx Metoprolol Tartrate [Lopressor] 50 mg PO Q12H tab 01/06/18 Rx Metoprolol Tartrate [Lopressor] 75 mg PO Q12H tab 01/06/18 Rx Tacrolimus [Prograf Cap] 3 mg PO Q12 cap 01/06/18 Rx Tacrolimus [Prograf Cap] 5 mg PO Q12 cap 01/06/18 Rx Tacrolimus [Prograf] 5 mg PO Q12 cap 01/06/18 Rx Tacrolimus [Prograf] 5 mg PO Q12 cap 01/06/18 Rx amLODIPine [Norvasc] 5 mg PO DAILY tab 01/06/18 Rx hydrALAZINE [Apresoline] 50 mg PO Q12H tab 01/06/18 Rx predniSONE [predniSONE Tab] 5 mg PO DAILY tab 01/06/18 Rx Allergies/Adverse Reactions: Allergies Allergy/AdvReac Type Severity Reaction Status Date / Time Penicillins Allergy Verified 01/01/18 14:15 - Medications Medications: Current Medications Amlodipine Besylate (Norvasc) 5 mg PO DAILY [facility] Last Admin: 01/06/18 10:29 Dose: 5 mg Calcitriol (Rocaltrol) 0.25 mcg PO DAILY [facility] Last Admin: 01/06/18 09:14 Dose: 0.25 mcg Calcium Acetate (Phoslo) 667 mg PO TIDCC [facility] Last Admin: 01/06/18 08:27 Dose: 667 mg Heparin Sodium (Porcine) (Heparin) 5,000 units SC Q12 [facility] Last Admin: 01/06/18 09:16 Dose: 5,000 units Hydralazine HCl (Apresoline) 50 mg PO Q12H [facility] Last Admin: 01/06/18 09:15 Dose: 50 mg Sodium Chloride (Sodium Chloride 0.9%) 1,000 mls @ 75 mls/hr IV .[id number] [facility] Last Admin: 01/06/18 08:34 Dose: Not Given Metoprolol Tartrate (Lopressor) 75 mg PO Q12H [facility] Last Admin: 01/06/18 09:14 Dose: 75 mg Prednisone (Prednisone Tab) 5 mg PO DAILY [facility] Last Admin: 01/06/18 09:15 Dose: 5 mg Tacrolimus (Prograf Cap) 3 mg PO Q12 [facility] Last Admin: 01/06/18 09:15 Dose: 3 mg Tacrolimus (Prograf) 5 mg PO Q12 [facility] Last Admin: 01/06/18 10:29 Dose: 5 mg Results - Vital Signs Recent Vital Signs: Last Vital Signs Temp 98.6 F 01/06/18 07:19 Pulse 74 01/06/18 07:19 Resp 20 01/06/18 07:19 BP 166/79 H 01/06/18 09:14 Pulse Ox 96 01/06/18 07:19 - Labs Result Diagrams: 01/05/18 08:48 01/05/18 08:48 Assessment & Plan - Assessment and Plan (Free Text) Assessment: IMP: urinary retention renal transplant DM Hypertension full note t/f - Date & Time Date: 01/06/18 Time: 11:35
--- NOTE | 2018-01-06 12:17 | CP.PCM.PN ---
Subjective - Date & Time of Evaluation Date of Evaluation: 01/06/18 Time of Evaluation: 12:14 - Subjective Subjective: Feels better Good UO creat decreased to 2.0 post void scan showed normal amount urine- small amount BP still elevated Objective - Vital Signs/Intake and Output Vital Signs (last 24 hours): Temp Pulse Resp BP Pulse Ox 98.6 F 74 20 166/79 H 96 01/06/18 07:19 01/06/18 07:19 01/06/18 07:19 01/06/18 09:14 01/06/18 07:19 Intake and Output: 01/06/18 01/06/18 06:59 18:59 Intake Total 1350 Balance 1350 - Medications Medications: Current Medications Amlodipine Besylate (Norvasc) 5 mg PO DAILY [facility] Last Admin: 01/06/18 10:29 Dose: 5 mg Calcitriol (Rocaltrol) 0.25 mcg PO DAILY [facility] Last Admin: 01/06/18 09:14 Dose: 0.25 mcg Calcium Acetate (Phoslo) 667 mg PO TIDCC [facility] Last Admin: 01/06/18 11:49 Dose: 667 mg Heparin Sodium (Porcine) (Heparin) 5,000 units SC Q12 [facility] Last Admin: 01/06/18 09:16 Dose: 5,000 units Hydralazine HCl (Apresoline) 50 mg PO Q12H [facility] Last Admin: 01/06/18 09:15 Dose: 50 mg Sodium Chloride (Sodium Chloride 0.9%) 1,000 mls @ 75 mls/hr IV .[id number] [facility] Last Admin: 01/06/18 08:34 Dose: Not Given Metoprolol Tartrate (Lopressor) 75 mg PO Q12H [facility] Last Admin: 01/06/18 09:14 Dose: 75 mg Prednisone (Prednisone Tab) 5 mg PO DAILY [facility] Last Admin: 01/06/18 09:15 Dose: 5 mg Tacrolimus (Prograf Cap) 3 mg PO Q12 [facility] Last Admin: 01/06/18 09:15 Dose: 3 mg Tacrolimus (Prograf) 5 mg PO Q12 [facility] Last Admin: 01/06/18 10:29 Dose: 5 mg - Labs Labs: 01/05/18 08:48 01/05/18 08:48 - Constitutional Appears: No Acute Distress, Chronically Ill - Head Exam Head Exam: ATRAUMATIC, NORMAL INSPECTION - Eye Exam Eye Exam: EOMI, Normal appearance - Neck Exam Neck Exam: Normal Inspection. absent: Tenderness - Respiratory Exam Respiratory Exam: Clear to Ausculation Bilateral, NORMAL BREATHING PATTERN - Cardiovascular Exam Cardiovascular Exam: REGULAR RHYTHM, +S1 - GI/Abdominal Exam GI & Abdominal Exam: Soft. absent: Tenderness - Extremities Exam Extremities Exam: Normal Inspection. absent: Tenderness - Neurological Exam Neurological Exam: Alert, CN II-XII Intact - Skin Skin Exam: Dry, Warm Assessment and Plan (1) NATE (acute kidney injury) Status: Acute (2) History of kidney transplant Status: Acute (3) Urinary retention Status: Acute (4) Dehydration Status: Acute (5) DM type 2 (diabetes mellitus, type 2) Status: Chronic (6) HTN (hypertension) Status: Chronic - Assessment and Plan (Free Text) Plan: increase metoprolol dose ok for discharge from renal point will have pt follow up transplant course as outpt
--- NOTE | 2018-01-13 02:21 | CON ---
DATE: Urology consultation is requested by Dr. Harrison. Urology consultation is filled by Dr. Iveth Fortune. REASON FOR CONSULTATION: Urinary retention. HISTORY OF PRESENT ILLNESS: The patient is a 62-year-old female with urinary retention. The patient is in otherwise fair health. The patient has history of renal failure and renal transplant. The patient was admitted for urinary retention. The patient was admitted on 01/01. The patient also had nausea and vomiting. She reports that she had a similar episode in the past. The patient has history of hypertension. Has history of diabetes. History of renal failure. Mrs. Coelho is an active woman. She does not smoke. She lives with her family. She is employed. Mrs. Coelho reports that she may have developed retention secondary to holding. She felt the urge to go but delays her voiding. Now, she was unable to urinate. Catheter was subsequently inserted for relief of retention. Mrs. Coelho reports that the catheter was subsequently removed, and she reports that she is comfortable with voiding well now. The patient has had normal bowel movements. MEDICATIONS: Have included amlodipine, heparin, hydralazine, metoprolol, prednisone, Prograf. PHYSICAL EXAMINATION: GENERAL: The patient is a well-developed, well-nourished female, appearing her stated age. The patient is awake and alert. ABDOMEN: Soft, protuberant, nontender. No mass or organomegaly. LABORATORY DATA: Urine culture, no growth. Hematocrit is 31. Creatinine 2.0. On admission, creatinine was 6.2. Now, creatinine is 2.0. BUN is 23. On admission, BUN was 45. Bicarb is 25 which is normal. On admission, bicarb was 21 The patient had a renal ultrasound performed on 01/02. The renal ultrasound reveals mild hydronephrosis of the transplanted kidney which is located in the right lower quadrant. kidney size is 11.3 x 7 x 7 cm. There is no report of the ultrasound findings of the [place] kidney. My review of the ultrasound does not reveal any images of the [place] kidneys. IMPRESSION: Urinary retention, now resolved. Etiology of the urinary retention may be due to detrusor muscle hypofunction. Less likely, is bladder outlet obstruction. Also possible is dysfunctional voiding as the patient reports to me that she held her urine until the point that she was unable to urinate. PLAN/RECOMMENDATIONS: I discussed the findings with the patient. I have recommend scheduled voiding. Monitor urine output. Schedule prompt . The patient reports that she is eager for discharge. Further therapy to follow according to the patient's clinical course. I would recommend outpatient followup as well. Thank you for recommending the patient for urology consultation. Dazey MD Tong cc: MD Akil Zhou MD
--- NOTE | 2018-01-14 09:04 | CP.PCM.DIS ---
Provider - Provider Date of Admission: 01/01/18 16:09 62 y/o female with HTN, s/p renal transplant. Patient has noted no urine output x 2 days. She saw renal servise and was advise to go to Er. In EP, Cr was markedly elevated from baseline of 1.3. Alos bladder scan was empty. Patient was admitted. Attending physician: Delvin Harrison MD Time Spent in preparation of Discharge (in minutes): 14 Hospital Course - Lab Results Lab Results: Micro Results 01/02/18 15:47 Urine Urine Culture - Final No Growth (<1,000 CFU/ML) 01/01/18 21:15 Urine,Bo Urine Culture - Final No Growth (<1,000 CFU/ML) Most Recent Lab Values WBC 4.7 K/uL (4.8-10.8) L 01/05/18 08:48 RBC 3.88 Mil/uL (3.80-5.20) 01/05/18 08:48 Hgb 10.8 g/dL (11.0-16.0) L 01/05/18 08:48 Hct 31.6 % (34.0-47.0) L 01/05/18 08:48 MCV 81.4 fL (81.0-99.0) 01/05/18 08:48 MCH 27.9 pg (27.0-31.0) 01/05/18 08:48 MCHC 34.3 g/dL (33.0-37.0) 01/05/18 08:48 RDW 16.6 % (11.5-14.5) H 01/05/18 08:48 Plt Count 184 K/uL (130-400) 01/05/18 08:48 MPV 7.6 fL (7.2-11.7) 01/05/18 08:48 Neut % (Auto) 67.2 % (50.0-75.0) 01/05/18 08:48 Lymph % (Auto) 23.2 % (20.0-40.0) 01/05/18 08:48 [place] % (Auto) 6.8 % (0.0-10.0) 01/05/18 08:48 Eos % (Auto) 2.5 % (0.0-4.0) 01/05/18 08:48 Baso % (Auto) 0.3 % (0.0-2.0) 01/05/18 08:48 Neut # (Auto) 3.2 K/uL (1.8-7.0) 01/05/18 08:48 Lymph # (Auto) 1.1 K/uL (1.0-4.3) 01/05/18 08:48 [place] # (Auto) 0.3 K/uL (0.0-0.8) 01/05/18 08:48 Eos # (Auto) 0.1 K/uL (0.0-0.7) 01/05/18 08:48 Baso # (Auto) 0.0 K/uL (0.0-0.2) 01/05/18 08:48 Neutrophils % (Manual) 89 % (50-75) H 01/01/18 14:36 Lymphocytes % (Manual) 8 % (20-40) L 01/01/18 14:36 Monocytes % (Manual) 3 % (0-10) 01/01/18 14:36 Platelet Estimate Normal (NORMAL) 01/01/18 14:36 Sodium 146 mmol/L (132-148) 01/05/18 08:48 Potassium 4.2 mmol/L (3.6-5.2) 01/05/18 08:48 Chloride 106 mmol/L (98-107) 01/05/18 08:48 Carbon Dioxide 25 mmol/L (22-30) 01/05/18 08:48 Anion Gap 19 (10-20) 01/05/18 08:48 BUN 23 mg/dL (7-17) H 01/05/18 08:48 Creatinine 2.0 mg/dL (0.7-1.2) H 01/05/18 08:48 Est GFR ( Amer) 31 01/05/18 08:48 Est GFR (Non-Af Amer) 25 01/05/18 08:48 Random Glucose 159 mg/dL (65-105) H 01/05/18 08:48 Calcium 6.7 mg/dl (8.6-10.4) L 01/05/18 08:48 Phosphorus 7.1 mg/dL (2.5-4.5) H 01/03/18 08:16 Magnesium 1.7 mg/dL (1.6-2.3) 01/03/18 08:16 Total Bilirubin 0.5 mg/dL (0.2-1.3) 01/05/18 08:48 AST 20 U/L (14-36) 01/05/18 08:48 ALT 10 U/L (9-52) 01/05/18 08:48 Alkaline Phosphatase 58 U/L (38-126) 01/05/18 08:48 Total Protein 7.6 g/dL (6.3-8.3) 01/05/18 08:48 Albumin 3.9 g/dL (3.5-5.0) 01/05/18 08:48 Globulin 3.7 gm/dL (2.2-3.9) 01/05/18 08:48 Albumin/Globulin Ratio 1.0 (1.0-2.1) 01/05/18 08:48 Urine Color Colorless (YELLOW) 01/02/18 16:13 Urine Clarity Clear (Clear) 01/02/18 16:13 Urine pH 5.0 (5.0-8.0) 01/02/18 16:13 Ur Specific [place] 1.005 (1.003-1.030) 01/02/18 16:13 Urine Protein Negative mg/dL (NEGATIVE) 01/02/18 16:13 Urine Glucose (UA) Normal mg/dL (Normal) 01/02/18 16:13 Urine Ketones Negative mg/dL (NEGATIVE) 01/02/18 16:13 Urine Blood 3+ (NEGATIVE) H 01/02/18 16:13 Urine Nitrate Negative (NEGATIVE) 01/02/18 16:13 Urine Bilirubin Negative (NEGATIVE) 01/02/18 16:13 Urine Urobilinogen Normal mg/dL (0.2-1.0) 01/02/18 16:13 Ur Leukocyte Esterase Neg [place]/uL (Negative) 01/02/18 16:13 Urine WBC (Auto) 4 /hpf (0-5) 01/02/18 16:13 Urine RBC (Auto) 18 /hpf (0-3) H 01/02/18 16:13 Ur Squamous Epith Cells < 1 /hpf (0-5) 01/01/18 18:56 Amorphous Sediment Rare /ul (<OCC) H 01/01/18 18:56 Urine Bacteria Rare (<OCC) 01/02/18 16:13 Ur Random Sodium 69 mmol/L 04/05/18 16:13 Tacrolimus (LC/MS/MS) 5.6 mcg/L (5.0-20.0) 01/03/18 08:16 - Hospital Course Hospital Course: Pt admitted and started on hydration. Patient had good response and serial Crea decrease w/ hydration Pt requested to be discharge and promise to do labs w/ PMD. Patient discharge markedly improve urine output Discharge Exam - Head Exam Head Exam: NORMAL INSPECTION - Eye Exam Eye Exam: Normal appearance - ENT Exam ENT Exam: Mucous Membranes Moist - Neck Exam Neck exam: Full Rom, Normal Inspection - Respiratory Exam Respiratory Exam: Clear to PA & Lateral. absent: Rales, Rhonchi, Wheezes - Cardiovascular Exam Cardiovascular Exam: REGULAR RHYTHM, JVD, +S1. absent: Gallop, Systolic Murmur - GI/Abdominal Exam GI & Abdominal Exam: absent: Rebound, Rigid, Tenderness - Extremities Exam Extremities exam: full ROM, normal capillary refill, pedal pulses present Discharge Plan - Follow Up Plan Condition: STABLE Disposition: HOME/ ROUTINE Instructions: Dehydration, Adult (DC), Kidney Failure (DC), Renal Failure Diet (DC) Referrals: Delvin Harrison MD [Staff Provider] -
== END 2018-01-06 14:15 | disposition home or self-care (01) | DRG 683 ==
LOC: C.ER 13:45 → C.9E 16:09 → C.3T 20:41
PROVIDERS: ADMIT Internal Medicine; ATTEND Internal Medicine
DX: N17.0 Acute kidney failure with tubular necrosis (principal); Z94.0 Kidney transplant status; E86.0 Dehydration; N25.81 Secondary hyperparathyroidism of renal origin; E11.22 Type 2 diabetes mellitus with diabetic chronic kidney disease; I12.9 Hypertensive chronic kidney disease with stage 1 through stage 4 chronic kidney disease, or unspecified chronic kidney disease; N18.3 Chronic kidney disease, stage 3 (moderate)

== ENCOUNTER 2018-02-22 09:01 | Inpatient (IN) | payer OTHER ==
[2018-02-22 09:01] VITALS: BMI 40.2
[2018-02-22] MEDS ORDERED: Sodium Chloride 0.9% 500 ML IV ONE (10:15)
--- NOTE | 2018-02-22 10:21 | C.PDOC ---
History Of Present Illness 62 year old female with a history of hypertension, renal transplant on her right side (2010), and questionable diabetes presents to the emergency department with no urination since 3:30PM yesterday. Patient reports that she was out all day in the sun and drank insufficient fluids. Patient reports she tried to drink more fluids in the afternoon but she still did not urinate. Patient denies fever, chills, and abdominal pain, but confirms that she experienced two episodes of vomiting green-colored fluids. Patient reports that she had similar symptoms recently and was hospitalized on 01-01-18. Time Seen by Provider: 02/22/18 09:33 Chief Complaint (Nursing): Female Genitourinary History Per: Patient History/Exam Limitations: no limitations Onset/Duration Of Symptoms: Days (1) Current Symptoms Are (Timing): Still Present Quality Of Discomfort: denies: "Pain" Associated Symptoms: Vomiting (two episodes, green-colored fluid), Urinary Symptoms. denies: Fever, Chills, Nausea Past Medical History Reviewed: Historical Data, Nursing Documentation, Vital Signs Vital Signs: Last Vital Signs Temp 99 F 02/22/18 09:19 Pulse 92 H 02/22/18 09:19 Resp 16 02/22/18 09:19 BP 178/88 H 02/22/18 09:19 Pulse Ox 99 02/22/18 13:45 - Medical History PMH: HTN Other Surgeries: Right-sided renal transplant (2010) Family History: States: No Known Family Hx - Social History Hx Alcohol Use: No Hx Substance Use: No Review Of Systems Constitutional: Negative for: Fever Gastrointestinal: Positive for: Vomiting. Negative for: Nausea, Abdominal Pain Genitourinary: Positive for: Other (no urination) Physical Exam - Physical Exam Appears: Well, Non-toxic, No Acute Distress, Other (overweight) Skin: No Rash Head: Atraumatic, Normacephalic Eye(s): bilateral: PERRL, EOMI Oral Mucosa: Dry Neck: Supple Chest: No Tenderness Cardiovascular: Rhythm Regular, No Murmur Respiratory: Normal Breath Sounds (clear to auscultation bilaterally), No Rales , No Rhonchi, No Wheezing Gastrointestinal/Abdominal: Bowel Sounds (normal bowel sounds), Soft, No Tenderness, No Distention, Other (multiple well-healed surgical scars) Extremity: Pedal Edema (+1 pitting edema bilaterally) Pulses: Left Dorsalis Pedis: Normal, Right Dorsalis Pedis: Normal Neurological/Psych: Oriented x3, Normal Speech, Normal Cognition ED Course And Treatment - Laboratory Results Result Diagrams: 02/22/18 10:19 02/22/18 10:19 O2 Sat by Pulse Oximetry: 99 (RA) Pulse Ox Interpretation: Normal Progress Note: Plan: CMP. Lipase. CBC. NaCl IV Fluids. Urine Culture. Urinalysis Medical Decision Making Medical Decision Making: Dr Marine mckeon. 1125 am [address] Gonzalez Harrison (who admits Dr Mcdonald's pts); he request Dr Rock since he is out of town. 12:12, left a message with Dr. Rock's operating service regarding patient. 12:58, second call placed to Dr. Rock's operating service, direct connection to his cell-phone attempted with no answer. A second request was placed. 13:43 call placed personally to Dr. Rock's cellphone with no answer. Message was left. If no response, patient will be admitted under IM Dr. Mcgill [id number] Dr Rock unable to accept pt for admission today. Discussd with Dr Beverley Mcgill, he will admit to his service. Disposition Discussed With Dr.: Christy Mcgill Doctor Will See Patient In The: Hospital - Disposition Disposition: HOSPITALIZED Disposition Time: 14:22 Condition: GOOD Forms: [facility] (Portuguese) - Clinical Impression Clinical Impression: Renal failure, Dehydration, Anuria - PA / [employer] / Resident Statement MD/DO has reviewed & agrees with the documentation as recorded. - Scribe Statement The provider has reviewed the documentation as recorded by the Scribe (Rafi Spannvi) All medical record entries made by the Scribe were at my direction and personally dictated by me. I have reviewed the chart and agree that the record accurately reflects my personal performance of the history, physical exam, medical decision making, and the department course for this patient. I have also personally directed, reviewed, and agree with the discharge instructions and disposition.
[2018-02-22 10:22] LABS: BASO % 0.5 % (0.0-2.0); EOS # 0.1 K/uL (0.0-0.7); EOS % 1.6 % (0.0-4.0); HEMOGLOBIN 11.2 g/dL (11.0-16.0); LYMPH # 0.9 K/uL (1.0-4.3); LYMPH % 10.3 % (20.0-40.0); MEAN CELL VOLUME 81.5 fL (81.0-99.0); MEAN CORPUSCULAR HEMOGLOBIN 28.5 pg (27.0-31.0); MEAN PLATELET VOLUME 7.5 fL (7.2-11.7); MONO # 0.6 K/uL (0.0-0.8); MONO % 7.2 % (0.0-10.0); NEUT # 7.1 K/uL (1.8-7.0); NEUT % 80.4 % (50.0-75.0); NRBC % 0.1 % (0.0-2.0); RBC 3.92 Mil/uL (3.80-5.20); RED CELL DISTRIBUTION WIDTH 16.7 % (11.5-14.5); WHITE BLOOD COUNT 8.8 K/uL (4.8-10.8)
[2018-02-22 11:04] LABS: CALCIUM 6.1 mg/dl (8.6-10.4)
[2018-02-22 11:08] LABS: ALB/GLOB RATIO 1.2 (1.0-2.1); ALBUMIN 4.3 g/dL (3.5-5.0)
[2018-02-22] MEDS: Sodium Chloride 0.9% 1,000 ML IV SCH ×2 (11:27→23:57)
--- NOTE | 2018-02-22 15:48 | CP.PCM.HP ---
Past Patient History - Infectious Disease Hx of Infectious Diseases: None - Past Medical History & Family History Past Medical History?: Yes - Past Social History Smoking Status: Never Smoked - CARDIAC Hx Hypertension: Yes - RENAL Hx Dialysis: Yes Hx Renal Failure: Yes Other/Comment: kidney transplant - MUSCULOSKELETAL/RHEUMATOLOGICAL Hx Falls: No - PSYCHIATRIC Hx Substance Use: No - SURGICAL HISTORY Hx Kidney Transplant: Yes (2010) Hx Vascular Access Device: Yes (fistula left arm) - ANESTHESIA Hx Anesthesia: Yes Meds Allergies/Adverse Reactions: Allergies Allergy/AdvReac Type Severity Reaction Status Date / Time Penicillins Allergy Verified 02/22/18 09:22 Physical Exam - Constitutional Appears: Well - Head Exam Head Exam: ATRAUMATIC, NORMAL INSPECTION, NORMOCEPHALIC - Eye Exam Eye Exam: EOMI, Normal appearance, PERRL Pupil Exam: NORMAL ACCOMODATION, PERRL - ENT Exam ENT Exam: Mucous Membranes Moist, Normal Exam - Neck Exam Neck exam: Positive for: Normal Inspection - Respiratory Exam Respiratory Exam: Decreased Breath Sounds - Cardiovascular Exam Cardiovascular Exam: REGULAR RHYTHM, +S1, +S2 - GI/Abdominal Exam GI & Abdominal Exam: Diminished Bowel Sounds, Soft - Rectal Exam Rectal Exam: Deferred Results - Vital Signs Recent Vital Signs: Last Vital Signs Temp 99 F 02/22/18 09:19 Pulse 92 H 02/22/18 09:19 Resp 16 02/22/18 09:19 BP 178/88 H 02/22/18 09:19 Pulse Ox 99 02/22/18 14:22 - Labs Result Diagrams: 02/22/18 10:19 02/22/18 10:19 Labs: Laboratory Results - last 24 hr 02/22/18 02/22/18 10:19 10:19 WBC 8.8 D RBC 3.92 Hgb 11.2 Hct 31.9 L MCV 81.5 MCH 28.5 MCHC 35.0 RDW 16.7 H Plt Count 146 MPV 7.5 Neut % (Auto) 80.4 H Lymph % (Auto) 10.3 L [place] % (Auto) 7.2 Eos % (Auto) 1.6 Baso % (Auto) 0.5 Neut # (Auto) 7.1 H Lymph # (Auto) 0.9 L [place] # (Auto) 0.6 Eos # (Auto) 0.1 Baso # (Auto) 0.0 Sodium 135 Potassium 4.2 Chloride 96 L Carbon Dioxide 21 L Anion Gap 22 H BUN 23 H Creatinine 3.6 H Est GFR ( Amer) 16 Est GFR (Non-Af Amer) 13 Random Glucose 145 H Calcium 6.1 L Total Bilirubin 1.1 AST 24 ALT 9 Alkaline Phosphatase 76 Total Protein 7.8 Albumin 4.3 Globulin 3.5 Albumin/Globulin Ratio 1.2 Lipase 249
[2018-02-22 20:03] LABS: URINE BACTERIA OCC (<OCC); URINE BILIRUBIN NEGATIVE (NEGATIVE); URINE BLOOD 2+ (NEGATIVE); URINE CLARITY Hazy (Clear); URINE COLOR Yellow (YELLOW); URINE GLUCOSE (UA) 2+ mg/dL (Normal); URINE LEUKOCYTE ESTERASE 2+ Leu/uL (Negative); URINE PROTEIN 2+ mg/dL (NEGATIVE); URINE UROBILINOGEN NORMAL mg/dL (0.2-1.0)
[2018-02-22] MEDS: Metoprolol Succinate 100 mg XL Tab PO SCH (23:50)
[2018-02-22] MEDS: Ciprofloxacin 200mg/100ml D5W 100 ML IVPB SCH (23:50)
[2018-02-23] MEDS: Sodium Chloride 0.9% 1,000 ML IV SCH ×2 (08:00→19:31)
[2018-02-23 08:08] LABS: BASO % 0.5 % (0.0-2.0); EOS # 0.1 K/uL (0.0-0.7); EOS % 0.8 % (0.0-4.0); HEMOGLOBIN 11.5 g/dL (11.0-16.0); LYMPH # 0.8 K/uL (1.0-4.3); LYMPH % 9.6 % (20.0-40.0); MEAN CELL VOLUME 81.2 fL (81.0-99.0); MEAN CORPUSCULAR HEMOGLOBIN 28.8 pg (27.0-31.0); MEAN CORPUSCULAR HGB CONC 35.5 g/dL (33.0-37.0); MEAN PLATELET VOLUME 8.2 fL (7.2-11.7); MONO # 0.4 K/uL (0.0-0.8); MONO % 5.1 % (0.0-10.0); NRBC % 0.4 % (0.0-2.0); PLATELET COUNT 158 K/uL (130-400); RBC 3.97 Mil/uL (3.80-5.20); RED CELL DISTRIBUTION WIDTH 16.7 % (11.5-14.5); WHITE BLOOD COUNT 8.3 K/uL (4.8-10.8)
[2018-02-23 08:26] LABS: ALB/GLOB RATIO 1.2 (1.0-2.1); ALBUMIN 4.2 g/dL (3.5-5.0); ALT/SGPT < 6 U/L (9-52); AST/SGOT 22 U/L (14-36); BLOOD UREA NITROGEN 28 mg/dL (7-17); CALCIUM 5.6 mg/dl (8.6-10.4); GFR AFRICAN-AMERICAN 10; GFR NON-AFRICAN AMERICAN 8
[2018-02-23 10:32] LABS: ANISOCYTOSIS SLIGHT; LYMPHOCYTE 10 % (20-40); MONOCYTE 4 % (0-10); NEUTROPHIL 86 % (50-75); PLATELET ESTIMATE NORMAL (NORMAL); TOTAL CELLS COUNTED 100
[2018-02-23 10:33] LABS: HYPOCHROMIC SLIGHT; POLYCHROMIC SLIGHT
[2018-02-23] MEDS: Metoprolol Succinate 100 mg XL Tab PO SCH ×2 (10:49→19:30)
[2018-02-23] MEDS: Ciprofloxacin 200mg/100ml D5W 100 ML IVPB SCH (11:01)
--- NOTE | 2018-02-23 13:36 | CP.PCM.CON ---
History of Present Illness - History of Present Illness History of Present Illness: Patient presents for decreased urine output. Patient describes 2 day history of being out in sun with poor oral intake. Patient not clear why she forgot to maintain hydration. She noted decreased urine output and presented to ed. Marin placed and patient admitted. Patient denies recent illness, no abdominal pain, nausea, vomiting, or diarrhea. No other urinary complaints reported, no recent dysuria or difficulty with micturition. Noted in outpatient chart - patient admitted to hospital for creatinine 8 due to poor po intake which responded to IVF. Reported to have happened twice in past. Scheduled to have bladder studies - not clear if they were completed. Patient did not recall this history, it is noted in outpatient record. Patient with known history of esrd due to HTN, s/p donor kidney transplant 2010, maintenance immunosuppression fk and pred History of diabetes and hypertension, does not follow glucose at home often Occasionally missed bp meds as well NO nsaids reported NO OTC meds reported NO herbal products reported Review of Systems - Constitutional Constitutional: absent: Fatigue, Fever, Headache, Lethargy, Weakness - EENT Eyes: absent: Blurred Vision, Change in Vision Ears: absent: Decreased Hearing, Ear Pain, Disequilibrium Nose/Mouth/Throat: Dry Mouth. absent: Nasal Discharge, Nasal Trauma, Bleeding Gums, Neck Pain - Cardiovascular Cardiovascular: absent: Chest Pain, Chest Pain at Rest, Edema, Palpitations, Pedal Edema - Respiratory Respiratory: absent: Cough, Dyspnea, Wheezing - Gastrointestinal Gastrointestinal: absent: Abdominal Pain, Constipation, Cramping, Diarrhea, Nausea - Genitourinary Genitourinary: Change in Urinary Stream. absent: Pyuria, Nocturia, Urinary Incontinence, Urinary Urgency - Musculoskeletal Musculoskeletal: absent: Joint Swelling, Muscle Cramps, Muscle Weakness, Myalgias, Stiffness - Integumentary Integumentary: absent: Erythema, Rash, Skin Pain, Skin Ulcer - Neurological Neurological: absent: Abnormal Gait, Abnormal Hearing, Confusion, Dizziness, Numbness, Memory Loss - Psychiatric Psychiatric: absent: Anxiety, Confusion, Depression - Endocrine Endocrine: absent: Excessive Sweating, Flushing, Polydipsia, Polyphagia - Hematologic/Lymphatic Hematologic: absent: Easy Bleeding, Easy Bruising Past Patient History - Infectious Disease Hx of Infectious Diseases: None - Past Medical History & Family History Past Medical History?: Yes - Past Social History Smoking Status: Never Smoked - CARDIAC Hx Hypertension: Yes - RENAL Hx Dialysis: Yes Hx Renal Failure: Yes Other/Comment: kidney transplant(2010) - ENDOCRINE/METABOLIC Hx Diabetes Mellitus Type 2: Yes - MUSCULOSKELETAL/RHEUMATOLOGICAL Hx Falls: No - PSYCHIATRIC Hx Substance Use: No - SURGICAL HISTORY Hx Angioplasty: Yes (same time as partial colectomy) Hx Kidney Transplant: Yes (2010) Hx Vascular Access Device: Yes (fistula left arm) - ANESTHESIA Hx Anesthesia: Yes Hx Anesthesia Reactions: No Hx Malignant Hyperthermia: No Has any member of the family had a problem w/ anesthesia?: No Meds Allergies/Adverse Reactions: Allergies Allergy/AdvReac Type Severity Reaction Status Date / Time Penicillins Allergy Verified 02/22/18 09:22 - Medications Medications: Current Medications Amlodipine Besylate (Norvasc) 10 mg PO DAILY [facility] Last Admin: 02/23/18 10:45 Dose: 10 mg Aspirin (Aspirin Chewable) 81 mg PO DAILY [facility] Last Admin: 02/23/18 10:45 Dose: 81 mg Calcitriol (Rocaltrol) 0.25 mcg PO DAILY [facility] Last Admin: 02/23/18 10:48 Dose: 0.25 mcg Hydralazine HCl (Apresoline) 50 mg PO BID [facility] Last Admin: 02/23/18 10:45 Dose: 50 mg Sodium Chloride (Sodium Chloride 0.9%) 1,000 mls @ 100 mls/hr IV .Q10H [facility] Last Admin: 02/22/18 23:57 Dose: 100 mls/hr Ciprofloxacin (Cipro 200mg/100ml D5w) 100 mls @ 100 mls/hr IVPB Q12H [facility] PRN Reason: Protocol Last Admin: 02/23/18 11:01 Dose: 100 mls/hr Metoprolol Succinate (Toprol Xl) 100 mg PO BID [facility] Last Admin: 02/23/18 10:49 Dose: 100 mg Prednisone (Prednisone Tab) 5 mg PO DAILY [facility] Last Admin: 02/23/18 10:46 Dose: 5 mg Tacrolimus (Prograf) 5 mg PO Q12 [facility] Last Admin: 02/23/18 10:47 Dose: 5 mg Tacrolimus (Prograf Cap) 3 mg PO Q12 [facility] Last Admin: 02/23/18 10:48 Dose: 3 mg Physical Exam - Constitutional Appears: Well, Non-toxic Additional comments: obese - Head Exam Head Exam: ATRAUMATIC, NORMAL INSPECTION - Eye Exam Eye Exam: EOMI, Normal appearance - ENT Exam ENT Exam: Mucous Membranes Dry, Normal Oropharynx - Neck Exam Neck exam: Negative for: Lymphadenopathy, Thyromegaly - Respiratory Exam Respiratory Exam: Clear to Auscultation Bilateral. absent: Rales, Rhonchi, Wheezes - Cardiovascular Exam Cardiovascular Exam: REGULAR RHYTHM, +S1, +S2. absent: JVD, Rubs - GI/Abdominal Exam GI & Abdominal Exam: Normal Bowel Sounds, Soft Additional comments: Right lower abdomen - allograft nontender and not enlarged on palpation suprapubic region nontender - Extremities Exam Extremities exam: Negative for: joint swelling, tenderness - Back Exam Back exam: absent: paraspinal tenderness, rash noted - Neurological Exam Neurological exam: Alert, Oriented x3 - Psychiatric Exam Psychiatric exam: Normal Affect, Normal Mood - Skin Skin Exam: Dry, Intact Results - Vital Signs Recent Vital Signs: Last Vital Signs Temp 98.8 F 02/22/18 23:50 Pulse 77 02/22/18 23:50 Resp 20 02/22/18 23:50 BP 164/91 H 02/22/18 23:50 Pulse Ox 97 02/22/18 23:50 - Labs Result Diagrams: 02/23/18 07:47 02/23/18 07:47 Labs: Laboratory Results - last 24 hr 02/22/18 02/23/18 02/23/18 19:54 07:47 07:47 WBC 8.3 RBC 3.97 Hgb 11.5 Hct 32.2 L MCV 81.2 MCH 28.8 MCHC 35.5 RDW 16.7 H Plt Count 158 MPV 8.2 Neut % (Auto) 84.0 H Lymph % (Auto) 9.6 L [place] % (Auto) 5.1 Eos % (Auto) 0.8 Baso % (Auto) 0.5 Neut # (Auto) 7.0 Lymph # (Auto) 0.8 L [place] # (Auto) 0.4 Eos # (Auto) 0.1 Baso # (Auto) 0.0 Neutrophils % (Manual) 86 H Lymphocytes % (Manual) 10 L Monocytes % (Manual) 4 Platelet Estimate Normal Polychromasia Slight Hypochromasia (manual) Slight Anisocytosis (manual) Slight Sodium 130 L Potassium 4.7 Chloride 98 Carbon Dioxide 17 L Anion Gap 20 BUN 28 H Creatinine 5.5 H Est GFR ( Amer) 10 Est GFR (Non-Af Amer) 8 Random Glucose 123 H Calcium 5.6 L* Total Bilirubin 1.3 AST 22 ALT < 6 L D Alkaline Phosphatase 78 Total Protein 7.8 Albumin 4.2 Globulin 3.6 Albumin/Globulin Ratio 1.2 Urine Color Yellow Urine Clarity Hazy Urine pH 5.0 Ur Specific Watson 1.008 Urine Protein 2+ H Urine Glucose (UA) 2+ H Urine Ketones Negative Urine Blood 2+ H Urine Nitrate Negative Urine Bilirubin Negative Urine Urobilinogen Normal Ur Leukocyte Esterase 2+ H Urine WBC (Auto) 37 H Urine RBC (Auto) 21 H Urine Bacteria Occ H Assessment & Plan (1) -donor kidney transplant recipient Status: Acute (2) Hyponatremia Status: Acute (3) NATE (acute kidney injury) Status: Acute (4) DM type 2 (diabetes mellitus, type 2) Status: Chronic (5) HTN (hypertension) Status: Chronic - Assessment and Plan (Free Text) Assessment: Acute on chronic kidney disease of renal transplant of unclear etiology Consider volume depletion based on history, ?rhabdo, nephrotoxicity, obstructive renal disease Initial evaluation to include renal transplant utrasound with bladder view Flush marin Urine studies Check prograf level Check cpk, ldh, hapto IVF for volume repletion Consider urology eval Repeat chemistry
[2018-02-23 16:56] LABS: URIC ACID 8.1 mg/dL (2.2-7.5)
--- NOTE | 2018-02-23 17:08 | US ---
PROCEDURE: Ultrasound of the Renal Transplant Kidney HISTORY: Acute kidney injury of transplant COMPARISON: None available. TECHNIQUE: Sonogram of the kidneys. FINDINGS: Right lower quadrant renal transplant kidney is identified measuring 11.3 x 6.9 x 7.4 cm. Corticomedullary differentiation is somewhat limited which may indicate some element of intrinsic medical renal disease with a loss of differentiation is not prominent. Mild hydronephrosis is suspected. No perinephric fluid collection or cystic/solid mass appreciated. Punctate intrarenal calculi are not excluded. OTHER FINDINGS: Urinary bladder is decompressed by Bo catheter. IMPRESSION: Mild right hydronephrosis is questioned and a right lower quadrant transplant kidney. Loss of corticomedullary differentiation appears [id number] may indicate an element of intrinsic medical renal disease as well. Punctate intrarenal calculi are not excluded in the transplant kidney is collecting systems.
--- NOTE | 2018-02-23 18:06 | CP.PCM.PN ---
Subjective - Date & Time of Evaluation Date of Evaluation: 02/23/18 Time of Evaluation: 08:00 - Subjective Subjective: clinically same Objective - Vital Signs/Intake and Output Vital Signs (last 24 hours): Temp Pulse Resp BP Pulse Ox 99 F 79 20 152/89 H 96 02/23/18 16:00 02/23/18 16:00 02/23/18 16:00 02/23/18 16:00 02/23/18 16:00 Intake and Output: 02/23/18 02/23/18 06:59 18:59 Intake Total 320 1100 Output Total 50 0 Balance 270 1100 - Medications Medications: Current Medications Amlodipine Besylate (Norvasc) 10 mg PO DAILY [facility] Last Admin: 02/23/18 10:45 Dose: 10 mg Aspirin (Aspirin Chewable) 81 mg PO DAILY [facility] Last Admin: 02/23/18 10:45 Dose: 81 mg Calcitriol (Rocaltrol) 0.25 mcg PO DAILY [facility] Last Admin: 02/23/18 10:48 Dose: 0.25 mcg Heparin Sodium (Porcine) (Heparin) 5,000 units SC Q12 [facility] Last Admin: 02/23/18 16:29 Dose: 5,000 units Hydralazine HCl (Apresoline) 50 mg PO BID [facility] Last Admin: 02/23/18 10:45 Dose: 50 mg Sodium Chloride (Sodium Chloride 0.9%) 1,000 mls @ 100 mls/hr IV .Q10H [facility] Last Admin: 02/23/18 08:00 Dose: Not Given Ciprofloxacin (Cipro 200mg/100ml D5w) 100 mls @ 100 mls/hr IVPB Q12H [facility] PRN Reason: Protocol Last Admin: 02/23/18 11:01 Dose: 100 mls/hr Metoprolol Succinate (Toprol Xl) 100 mg PO BID [facility] Last Admin: 02/23/18 10:49 Dose: 100 mg Ondansetron HCl (Zofran Inj) 4 mg IVP Q8 PRN PRN Reason: PRN Nausea Last Admin: 02/23/18 15:09 Dose: 4 mg Prednisone (Prednisone Tab) 5 mg PO DAILY [facility] Last Admin: 02/23/18 10:46 Dose: 5 mg Tacrolimus (Prograf) 5 mg PO Q12 [facility] Last Admin: 02/23/18 10:47 Dose: 5 mg Tacrolimus (Prograf Cap) 3 mg PO Q12 [facility] Last Admin: 02/23/18 10:48 Dose: 3 mg - Labs Labs: 02/23/18 07:47 02/23/18 07:47 - Constitutional Appears: Well - Head Exam Head Exam: ATRAUMATIC, NORMAL INSPECTION, NORMOCEPHALIC - Eye Exam Eye Exam: EOMI, Normal appearance, PERRL Pupil Exam: NORMAL ACCOMODATION, PERRL - ENT Exam ENT Exam: Mucous Membranes Moist, Normal Exam - Neck Exam Neck Exam: Full ROM, Normal Inspection. absent: Lymphadenopathy - Respiratory Exam Respiratory Exam: Decreased Breath Sounds - Cardiovascular Exam Cardiovascular Exam: REGULAR RHYTHM, +S1, +S2 - GI/Abdominal Exam GI & Abdominal Exam: Soft, Diminished Bowel Sounds - Rectal Exam Rectal Exam: Deferred Assessment and Plan (1) Anuria Status: Acute (2) -donor kidney transplant recipient Status: Acute (3) Dehydration Status: Acute (4) Hyponatremia Status: Acute (5) Renal failure Status: Acute (6) NATE (acute kidney injury) Status: Acute (7) History of kidney transplant Status: Acute (8) Urinary retention Status: Acute (9) DM type 2 (diabetes mellitus, type 2) Status: Chronic (10) HTN (hypertension) Status: Chronic - Assessment and Plan (Free Text) Plan: Hemoglobin hematocrit 11.5+32.2 Calcium is 5.6 Creatinine is 5.5 same as yesterday Urine WBCs 37 Follow-up with the nephrology Status post seen by Dr. Leslie CBC CMP every day may need front desk monitor calcitriol followup ith otheroncsulttion as needed
--- NOTE | 2018-02-23 18:28 | CP.PCM.CON ---
History of Present Illness - History of Present Illness History of Present Illness: Patient presents for severe dehydration and NATE referrefd for ID eval of this Patient describes 2 day history of being out in sun with poor oral intake. Patient not clear why she forgot to maintain hydration. Patient denies recent illness, no abdominal pain, nausea, vomiting, or diarrhea. No other urinary complaints reported, no recent dysuria or difficulty with micturition. Patient with known history of esrd due to HTN, s/p donor kidney transplant 2010, maintenance immunosuppression fk and pred History of diabetes and hypertension, does not follow glucose at home often Occasionally missed bp meds as well NO nsaids reported NO OTC meds reported NO herbal products reported Review of Systems - Constitutional Constitutional: absent: Fatigue, Fever, Headache, Lethargy, Weakness - EENT Eyes: absent: Blurred Vision, Change in Vision Ears: absent: Decreased Hearing, Ear Pain, Disequilibrium Nose/Mouth/Throat: Dry Mouth. absent: Nasal Discharge, Nasal Trauma, Bleeding Gums, Neck Pain - Cardiovascular Cardiovascular: absent: Chest Pain, Chest Pain at Rest, Edema, Palpitations, Pedal Edema - Respiratory Respiratory: absent: Cough, Dyspnea, Wheezing - Gastrointestinal Gastrointestinal: absent: Abdominal Pain, Constipation, Cramping, Diarrhea, Nausea - Genitourinary Genitourinary: Change in Urinary Stream. absent: Pyuria, Nocturia, Urinary Incontinence, Urinary Urgency - Musculoskeletal Musculoskeletal: absent: Joint Swelling, Muscle Cramps, Muscle Weakness, Myalgias, Stiffness - Integumentary Integumentary: absent: Erythema, Rash, Skin Pain, Skin Ulcer - Neurological Neurological: absent: Abnormal Gait, Abnormal Hearing, Confusion, Dizziness, Numbness, Memory Loss - Psychiatric Psychiatric: absent: Anxiety, Confusion, Depression - Endocrine Endocrine: absent: Excessive Sweating, Flushing, Polydipsia, Polyphagia - Hematologic/Lymphatic Hematologic: absent: Easy Bleeding, Easy Bruising Past Patient History - Infectious Disease Hx of Infectious Diseases: None - Past Medical History & Family History Past Medical History?: Yes - Past Social History Smoking Status: Never Smoked - CARDIAC Hx Hypertension: Yes - RENAL Hx Dialysis: Yes Hx Renal Failure: Yes Other/Comment: kidney transplant(2010) - ENDOCRINE/METABOLIC Hx Diabetes Mellitus Type 2: Yes - MUSCULOSKELETAL/RHEUMATOLOGICAL Hx Falls: No - PSYCHIATRIC Hx Substance Use: No - SURGICAL HISTORY Hx Angioplasty: Yes (same time as partial colectomy) Hx Kidney Transplant: Yes (2010) Hx Vascular Access Device: Yes (fistula left arm) - ANESTHESIA Hx Anesthesia: Yes Hx Anesthesia Reactions: No Hx Malignant Hyperthermia: No Has any member of the family had a problem w/ anesthesia?: No Meds Allergies/Adverse Reactions: Allergies Allergy/AdvReac Type Severity Reaction Status Date / Time Penicillins Allergy Verified 02/22/18 09:22 - Medications Medications: Current Medications Amlodipine Besylate (Norvasc) 10 mg PO DAILY [facility] Last Admin: 02/23/18 10:45 Dose: 10 mg Aspirin (Aspirin Chewable) 81 mg PO DAILY [facility] Last Admin: 02/23/18 10:45 Dose: 81 mg Calcitriol (Rocaltrol) 0.25 mcg PO DAILY [facility] Last Admin: 02/23/18 10:48 Dose: 0.25 mcg Heparin Sodium (Porcine) (Heparin) 5,000 units SC Q12 [facility] Last Admin: 02/23/18 16:29 Dose: 5,000 units Hydralazine HCl (Apresoline) 50 mg PO BID [facility] Last Admin: 02/23/18 10:45 Dose: 50 mg Sodium Chloride (Sodium Chloride 0.9%) 1,000 mls @ 100 mls/hr IV .Q10H [facility] Last Admin: 02/23/18 08:00 Dose: Not Given Ciprofloxacin (Cipro 200mg/100ml D5w) 100 mls @ 100 mls/hr IVPB Q12H [facility] PRN Reason: Protocol Last Admin: 02/23/18 11:01 Dose: 100 mls/hr Metoprolol Succinate (Toprol Xl) 100 mg PO BID [facility] Last Admin: 02/23/18 10:49 Dose: 100 mg Ondansetron HCl (Zofran Inj) 4 mg IVP Q8 PRN PRN Reason: PRN Nausea Last Admin: 02/23/18 15:09 Dose: 4 mg Prednisone (Prednisone Tab) 5 mg PO DAILY [facility] Last Admin: 02/23/18 10:46 Dose: 5 mg Tacrolimus (Prograf) 5 mg PO Q12 [facility] Last Admin: 02/23/18 10:47 Dose: 5 mg Tacrolimus (Prograf Cap) 3 mg PO Q12 [facility] Last Admin: 02/23/18 10:48 Dose: 3 mg Physical Exam - Constitutional Appears: Chronically Ill - Head Exam Head Exam: ATRAUMATIC, NORMOCEPHALIC - Eye Exam Eye Exam: PERRL. absent: Scleral icterus Pupil Exam: NORMAL ACCOMODATION - ENT Exam ENT Exam: Mucous Membranes Dry - Neck Exam Neck exam: Negative for: Lymphadenopathy - Respiratory Exam Respiratory Exam: Decreased Breath Sounds - Cardiovascular Exam Cardiovascular Exam: REGULAR RHYTHM - GI/Abdominal Exam GI & Abdominal Exam: Diminished Bowel Sounds, Soft - Rectal Exam Rectal Exam: Deferred - Exam Exam: NORMAL INSPECTION - Extremities Exam Extremities exam: Negative for: pedal edema - Back Exam Back exam: absent: CVA tenderness (L), CVA tenderness (R) - Neurological Exam Neurological exam: Alert, CN II-XII Intact, Oriented x3, Reflexes Normal - Psychiatric Exam Psychiatric exam: Depressed - Skin Skin Exam: Dry Results - Vital Signs Recent Vital Signs: Last Vital Signs Temp 99 F 02/23/18 16:00 Pulse 79 02/23/18 16:00 Resp 20 02/23/18 16:00 BP 152/89 H 02/23/18 16:00 Pulse Ox 96 02/23/18 16:00 - Labs Result Diagrams: 02/23/18 07:47 02/23/18 07:47 Labs: Laboratory Results - last 24 hr 02/22/18 02/23/18 02/23/18 19:54 07:47 07:47 WBC 8.3 RBC 3.97 Hgb 11.5 Hct 32.2 L MCV 81.2 MCH 28.8 MCHC 35.5 RDW 16.7 H Plt Count 158 MPV 8.2 Neut % (Auto) 84.0 H Lymph % (Auto) 9.6 L [place] % (Auto) 5.1 Eos % (Auto) 0.8 Baso % (Auto) 0.5 Neut # (Auto) 7.0 Lymph # (Auto) 0.8 L [place] # (Auto) 0.4 Eos # (Auto) 0.1 Baso # (Auto) 0.0 Neutrophils % (Manual) 86 H Lymphocytes % (Manual) 10 L Monocytes % (Manual) 4 Platelet Estimate Normal Polychromasia Slight Hypochromasia (manual) Slight Anisocytosis (manual) Slight Sodium 130 L Potassium 4.7 Chloride 98 Carbon Dioxide 17 L Anion Gap 20 BUN 28 H Creatinine 5.5 H Est GFR ( Amer) 10 Est GFR (Non-Af Amer) 8 Random Glucose 123 H Serum Osmolality Uric Acid Calcium 5.6 L* Total Bilirubin 1.3 AST 22 ALT < 6 L D Alkaline Phosphatase 78 Total Creatine Kinase Total Protein 7.8 Albumin 4.2 Globulin 3.6 Albumin/Globulin Ratio 1.2 Urine Color Yellow Urine Clarity Hazy Urine pH 5.0 Ur Specific [place] 1.008 Urine Protein 2+ H Urine Glucose (UA) 2+ H Urine Ketones Negative Urine Blood 2+ H Urine Nitrate Negative Urine Bilirubin Negative Urine Urobilinogen Normal Ur Leukocyte Esterase 2+ H Urine WBC (Auto) 37 H Urine RBC (Auto) 21 H Urine Bacteria Occ H 02/23/18 02/23/18 07:47 16:40 WBC RBC Hgb Hct MCV MCH MCHC RDW Plt Count MPV Neut % (Auto) Lymph % (Auto) [place] % (Auto) Eos % (Auto) Baso % (Auto) Neut # (Auto) Lymph # (Auto) [place] # (Auto) Eos # (Auto) Baso # (Auto) Neutrophils % (Manual) Lymphocytes % (Manual) Monocytes % (Manual) Platelet Estimate Polychromasia Hypochromasia (manual) Anisocytosis (manual) Sodium Potassium Chloride Carbon Dioxide Anion Gap BUN Creatinine Est GFR ( Amer) Est GFR (Non-Af Amer) Random Glucose Serum Osmolality 281 Uric Acid 8.1 H Calcium Total Bilirubin AST ALT Alkaline Phosphatase Total Creatine Kinase 458 H Total Protein Albumin Globulin Albumin/Globulin Ratio Urine Color Urine Clarity Urine pH Ur Specific [place] Urine Protein Urine Glucose (UA) Urine Ketones Urine Blood Urine Nitrate Urine Bilirubin Urine Urobilinogen Ur Leukocyte Esterase Urine WBC (Auto) Urine RBC (Auto) Urine Bacteria Assessment & Plan (1) Anuria Status: Acute (2) -donor kidney transplant recipient Status: Acute (3) Dehydration Status: Acute (4) Hyponatremia Status: Acute (5) Renal failure Status: Acute (6) NATE (acute kidney injury) Status: Acute (7) History of kidney transplant Status: Acute - Assessment and Plan (Free Text) Assessment: d/c cipro due to potential interaction with tacrolimus add azactam for possible UTI renally adjusted
[2018-02-24] MEDS: Sodium Chloride 0.9% 1,000 ML IV SCH ×2 (01:04→04:07)
--- NOTE | 2018-02-24 09:16 | CP.PCM.CON ---
History of Present Illness - History of Present Illness History of Present Illness: Asked by Dr. Mcgill for a GI consultation on this patient. 62 year old female with history of obesity (BMI 38), CKD s/p kidney transplant in 2010, HTN, DM who presents to hospital with complaint of fatigue and dehydration which happened 2 days ago. She noticed that she had not urinated in several hours which is atypical for her and she came for further evaluation, found to be in acute renal insufficiency and currently being treated for UTI. GI called for evaluation of persistent nausea. She describes nausea with dry heaving but denies vomiting, fever/chills, weight loss, rectal bleeding, or change in bowel habits. She does report loose bowel movements which started since arrival to hospital. She had a colonoscopy 11 years ago which was normal as per patient, no prior EGD. Social history: non-smoker, no ETOH use Famliy history: father (colon cancer), diagnosed age 68 Review of Systems - Review of Systems Review of Systems: - All other comprehensive 12 point review of systems performed, negative - Constitutional Constitutional: Fatigue, Lethargy - Cardiovascular Cardiovascular: absent: Acrocyanosis, Chest Pain, Chest Pain at Rest, Chest Pain with Activity, Claudication, Diaphoresis, Dyspnea, Dyspnea on Exertion, Edema, Irregular Heart Rhythm, Pain Radiating to Arm/Neck/Jaw, Leg Edema, Leg Ulcers, Lightheadedness, Orthopnea, Palpitations, Paroxysmal Nocturnal Dyspnea, Pedal Edema, Radiating Pain, Rapid Heart Rate, Slow Heart Rate, Syncope, Other - Respiratory Respiratory: absent: Cough, Dyspnea, Hemoptysis, Dyspnea on Exertion, Wheezing, Snoring, Stridor, Pain on Inspiration, Chest Congestion, Excessive Mucous Production, Change in Mucous Color, Pain with Coughing, Other - Gastrointestinal Gastrointestinal: Nausea - Musculoskeletal Musculoskeletal: absent: Abnormal Gait, Arthralgias, Atrophy, Back Pain, Deformity, Joint Swelling, Limited Range of Motion, Loss of Height, Muscle Cramps, Muscle Weakness, Myalgias, Neck Pain, Numbness, Radiating Pain into Limb , Stiffness, Tingling, Other - Neurological Neurological: absent: Abnormal Gait, Abnormal Hearing, Abnormal Movements, Abnormal Speech, Behavioral Changes, Burning Sensations, Confusion, Convulsions , Disequilibrium, Dizziness, Numbness, Focal Weakness, Frequent Falls, Headaches , Lack of Coordination, Loss of Vision, Memory Loss, Paresthesias, Radicular Pain, Restless Legs, Sensory Deficit, Syncope, Tingling, Tremor, Vertigo, Weakness, Other Visual Disturbances, Other Past Patient History - Infectious Disease Hx of Infectious Diseases: None - Past Medical History & Family History Past Medical History?: Yes - Past Social History Smoking Status: Never Smoked - CARDIAC Hx Hypertension: Yes - RENAL Hx Dialysis: Yes Hx Renal Failure: Yes Other/Comment: kidney transplant(2010) - ENDOCRINE/METABOLIC Hx Diabetes Mellitus Type 2: Yes - MUSCULOSKELETAL/RHEUMATOLOGICAL Hx Falls: No - PSYCHIATRIC Hx Substance Use: No - SURGICAL HISTORY Hx Angioplasty: Yes (same time as partial colectomy) Hx Kidney Transplant: Yes (2010) Hx Vascular Access Device: Yes (fistula left arm) - ANESTHESIA Hx Anesthesia: Yes Hx Anesthesia Reactions: No Hx Malignant Hyperthermia: No Has any member of the family had a problem w/ anesthesia?: No Meds Allergies/Adverse Reactions: Allergies Allergy/AdvReac Type Severity Reaction Status Date / Time Penicillins Allergy Verified 02/22/18 09:22 - Medications Medications: Current Medications Amlodipine Besylate (Norvasc) 10 mg PO DAILY [facility] Last Admin: 02/23/18 10:45 Dose: 10 mg Aspirin (Aspirin Chewable) 81 mg PO DAILY [facility] Last Admin: 02/23/18 10:45 Dose: 81 mg Calcitriol (Rocaltrol) 0.25 mcg PO DAILY [facility] Last Admin: 02/23/18 10:48 Dose: 0.25 mcg Heparin Sodium (Porcine) (Heparin) 5,000 units SC Q12 [facility] Last Admin: 02/23/18 21:58 Dose: 5,000 units Hydralazine HCl (Apresoline) 50 mg PO BID [facility] Last Admin: 02/23/18 19:30 Dose: 50 mg Sodium Chloride (Sodium Chloride 0.9%) 1,000 mls @ 100 mls/hr IV .Q10H [facility] Last Admin: 02/24/18 04:07 Dose: Not Given Aztreonam 500 mg/ Sodium (Chloride) 100 mls @ 100 mls/hr IVPB Q8H [facility] PRN Reason: Protocol Last Admin: 02/24/18 02:54 Dose: 100 mls/hr Metoprolol Succinate (Toprol Xl) 100 mg PO BID [facility] Last Admin: 02/23/18 19:30 Dose: 100 mg Ondansetron HCl (Zofran Inj) 4 mg IVP Q8 PRN PRN Reason: PRN Nausea Last Admin: 02/23/18 15:09 Dose: 4 mg Prednisone (Prednisone Tab) 5 mg PO DAILY [facility] Last Admin: 02/23/18 10:46 Dose: 5 mg Tacrolimus (Prograf) 5 mg PO Q12 [facility] Last Admin: 02/23/18 22:00 Dose: 5 mg Tacrolimus (Prograf Cap) 3 mg PO Q12 [facility] Last Admin: 02/23/18 21:58 Dose: 3 mg Physical Exam - Constitutional Appears: Non-toxic, No Acute Distress - Head Exam Head Exam: NORMAL INSPECTION - Eye Exam Eye Exam: EOMI, Normal appearance - ENT Exam ENT Exam: Mucous Membranes Moist Additional comments: poor dentition - Respiratory Exam Respiratory Exam: Clear to Auscultation Bilateral - Cardiovascular Exam Cardiovascular Exam: REGULAR RHYTHM, +S1, +S2 - GI/Abdominal Exam GI & Abdominal Exam: Normal Bowel Sounds, Soft Additional comments: non tender to palpation in four quadrants no palpable hepato/splenomegaly - Extremities Exam Extremities exam: Positive for: normal inspection - Neurological Exam Neurological exam: Alert, CN II-XII Intact, Oriented x3, Reflexes Normal - Psychiatric Exam Psychiatric exam: Normal Affect, Normal Mood - Skin Skin Exam: Dry, Intact, Normal Color, Warm Results - Vital Signs Recent Vital Signs: Last Vital Signs Temp 99 F 02/24/18 00:00 Pulse 75 02/24/18 00:00 Resp 20 02/24/18 00:00 BP 134/75 02/24/18 00:00 Pulse Ox 96 02/24/18 00:00 - Labs Result Diagrams: 02/23/18 07:47 02/23/18 07:47 Labs: Laboratory Results - last 24 hr 02/23/18 02/23/18 02/23/18 07:47 07:47 16:40 Neutrophils % (Manual) 86 H Lymphocytes % (Manual) 10 L Monocytes % (Manual) 4 Platelet Estimate Normal Polychromasia Slight Hypochromasia (manual) Slight Anisocytosis (manual) Slight Serum Osmolality 281 Uric Acid 8.1 H Total Creatine Kinase 458 H Assessment & Plan - Assessment and Plan (Free Text) Assessment: Obesity DM HTN acute on chronic renal insufficiency, h/o kidney transplant UTI Nausea Plan: - Etiology of nausea multifactorial in setting of acute UTI, renal insufficiency , diabetes, immunosuppression - Diet as tolerated - Anti-emetic therapy PRN - Obtain HBA1C - Follow up nephrology recommendations, awaiting prograf level - Continue with antibiotic therapy as per ID - Will continue to monitor patient clinical course
[2018-02-24] MEDS: Metoprolol Succinate 100 mg XL Tab PO SCH ×2 (11:04→18:40)
--- NOTE | 2018-02-24 12:21 | CP.PCM.PN ---
Subjective - Date & Time of Evaluation Date of Evaluation: 02/24/18 Time of Evaluation: 12:20 - Subjective Subjective: seen and examined chart reviewed c/o slight sob and nausea minimal uop in [place] no cp/dizziness/vomiting/diarrhea/fevers/chills/dysuria Objective - Vital Signs/Intake and Output Vital Signs (last 24 hours): Temp Pulse Resp BP Pulse Ox 98.3 F 73 20 115/63 95 02/24/18 07:19 02/24/18 07:19 02/24/18 07:19 02/24/18 07:19 02/24/18 07:19 Intake and Output: 02/24/18 02/24/18 06:59 18:59 Intake Total 1050 1150 Output Total 0 0 Balance 1050 1150 - Medications Medications: Current Medications Amlodipine Besylate (Norvasc) 10 mg PO DAILY [facility] Last Admin: 02/24/18 11:04 Dose: 10 mg Aspirin (Aspirin Chewable) 81 mg PO DAILY [facility] Last Admin: 02/24/18 11:04 Dose: 81 mg Calcitriol (Rocaltrol) 0.25 mcg PO DAILY [facility] Last Admin: 02/24/18 11:23 Dose: 0.25 mcg Heparin Sodium (Porcine) (Heparin) 5,000 units SC Q12 [facility] Last Admin: 02/24/18 11:04 Dose: 5,000 units Hydralazine HCl (Apresoline) 50 mg PO BID [facility] Last Admin: 02/24/18 11:04 Dose: 50 mg Sodium Chloride (Sodium Chloride 0.9%) 1,000 mls @ 100 mls/hr IV .Q10H [facility] Last Admin: 02/24/18 04:07 Dose: Not Given Aztreonam 500 mg/ Sodium (Chloride) 100 mls @ 100 mls/hr IVPB Q8H [facility] PRN Reason: Protocol Last Admin: 02/24/18 11:28 Dose: 100 mls/hr Metoprolol Succinate (Toprol Xl) 100 mg PO BID [facility] Last Admin: 02/24/18 11:04 Dose: 100 mg Ondansetron HCl (Zofran Inj) 4 mg IVP Q8 PRN PRN Reason: PRN Nausea Last Admin: 02/23/18 15:09 Dose: 4 mg Prednisone (Prednisone Tab) 5 mg PO DAILY [facility] Last Admin: 02/24/18 11:05 Dose: 5 mg Sodium Bicarbonate (Sodium Bicarbonate Tab) 650 mg PO TID [facility] Tacrolimus (Prograf) 5 mg PO Q12 [facility] Last Admin: 02/24/18 11:26 Dose: 5 mg Tacrolimus (Prograf Cap) 3 mg PO Q12 [facility] Last Admin: 02/24/18 11:22 Dose: 3 mg - Labs Labs: 02/23/18 07:47 02/23/18 07:47 - Constitutional Appears: Non-toxic, No Acute Distress, Chronically Ill - Head Exam Head Exam: NORMAL INSPECTION, NORMOCEPHALIC - Eye Exam Eye Exam: Normal appearance Pupil Exam: NORMAL ACCOMODATION - ENT Exam ENT Exam: Mucous Membranes Moist, Normal Exam - Respiratory Exam Respiratory Exam: Decreased Breath Sounds, NORMAL BREATHING PATTERN - Cardiovascular Exam Cardiovascular Exam: REGULAR RHYTHM, RRR - GI/Abdominal Exam GI & Abdominal Exam: Distended, Soft, Normal Bowel Sounds - Extremities Exam Extremities Exam: Full ROM, Normal Inspection Additional comments: lue avf, no thrill Assessment and Plan (1) -donor kidney transplant recipient Status: Acute (2) Dehydration Status: Acute (3) NATE (acute kidney injury) Status: Acute (4) History of kidney transplant Status: Acute (5) Urinary retention Status: Acute (6) DM type 2 (diabetes mellitus, type 2) Status: Chronic (7) HTN (hypertension) Status: Chronic - Assessment and Plan (Free Text) Assessment: worsening renal function recommend urology evaluation add po bicarb on calcitriol, add calcium follow FK levels mild rhabdomyolysis, follow cpk may need TRAVELING CLERK, daily chems. consent in chart
--- NOTE | 2018-02-24 13:34 | CP.PCM.PN ---
Subjective - Date & Time of Evaluation Date of Evaluation: 02/24/18 Time of Evaluation: 08:00 - Subjective Subjective: clinically same Objective - Vital Signs/Intake and Output Vital Signs (last 24 hours): Temp Pulse Resp BP Pulse Ox 98.3 F 73 20 115/63 95 02/24/18 07:19 02/24/18 07:19 02/24/18 07:19 02/24/18 07:19 02/24/18 07:19 Intake and Output: 02/24/18 02/24/18 06:59 18:59 Intake Total 1050 1150 Output Total 0 0 Balance 1050 1150 - Medications Medications: Current Medications Amlodipine Besylate (Norvasc) 10 mg PO DAILY [facility] Last Admin: 02/24/18 11:04 Dose: 10 mg Aspirin (Aspirin Chewable) 81 mg PO DAILY [facility] Last Admin: 02/24/18 11:04 Dose: 81 mg Calcitriol (Rocaltrol) 0.25 mcg PO DAILY [facility] Last Admin: 02/24/18 11:23 Dose: 0.25 mcg Calcium Carbonate (Tums) 500 mg PO BID [facility] Heparin Sodium (Porcine) (Heparin) 5,000 units SC Q12 [facility] Last Admin: 02/24/18 11:04 Dose: 5,000 units Hydralazine HCl (Apresoline) 50 mg PO BID [facility] Last Admin: 02/24/18 11:04 Dose: 50 mg Sodium Chloride (Sodium Chloride 0.9%) 1,000 mls @ 100 mls/hr IV .Q10H [facility] Last Admin: 02/24/18 04:07 Dose: Not Given Aztreonam 500 mg/ Sodium (Chloride) 100 mls @ 100 mls/hr IVPB Q8H [facility] PRN Reason: Protocol Last Admin: 02/24/18 11:28 Dose: 100 mls/hr Metoprolol Succinate (Toprol Xl) 100 mg PO BID [facility] Last Admin: 02/24/18 11:04 Dose: 100 mg Ondansetron HCl (Zofran Inj) 4 mg IVP Q8 PRN PRN Reason: PRN Nausea Last Admin: 02/23/18 15:09 Dose: 4 mg Prednisone (Prednisone Tab) 5 mg PO DAILY [facility] Last Admin: 02/24/18 11:05 Dose: 5 mg Sodium Bicarbonate (Sodium Bicarbonate Tab) 650 mg PO TID [facility] Tacrolimus (Prograf) 5 mg PO Q12 [facility] Last Admin: 02/24/18 11:26 Dose: 5 mg Tacrolimus (Prograf Cap) 3 mg PO Q12 [facility] Last Admin: 02/24/18 11:22 Dose: 3 mg - Labs Labs: 02/23/18 07:47 02/23/18 07:47 - Constitutional Appears: Well - Head Exam Head Exam: ATRAUMATIC, NORMAL INSPECTION, NORMOCEPHALIC - Eye Exam Eye Exam: EOMI, Normal appearance, PERRL Pupil Exam: NORMAL ACCOMODATION, PERRL - ENT Exam ENT Exam: Mucous Membranes Moist, Normal Exam - Neck Exam Neck Exam: Full ROM, Normal Inspection. absent: Lymphadenopathy - Respiratory Exam Respiratory Exam: Decreased Breath Sounds - Cardiovascular Exam Cardiovascular Exam: REGULAR RHYTHM, +S1, +S2 - GI/Abdominal Exam GI & Abdominal Exam: Soft, Diminished Bowel Sounds - Rectal Exam Rectal Exam: Deferred Assessment and Plan (1) Anuria Status: Acute (2) -donor kidney transplant recipient Status: Acute (3) Dehydration Status: Acute (4) Hyponatremia Status: Acute (5) Renal failure Status: Acute (6) NATE (acute kidney injury) Status: Acute (7) History of kidney transplant Status: Acute (8) Urinary retention Status: Acute (9) DM type 2 (diabetes mellitus, type 2) Status: Chronic (10) HTN (hypertension) Status: Chronic - Assessment and Plan (Free Text) Plan: Continue Prograf Continue prednisone Patient is not on CellCept Calcium The patient may need dialysis Continue H2O Continue follow-up with the GI Continue follow-up with ID Continue follow-up with the renal
[2018-02-24] MEDS ORDERED: Sodium Chloride 0.9% 1,000 ML IV SCH (13:42)
[2018-02-24] MEDS: Calcium Carbonate 500 mg Chewable Antacid Tab PO SCH (19:27)
[2018-02-24] MEDS: Albuterol-Ipratrop 3 mg / 0.5 (3 ml) UD INH SCH (20:40)
[2018-02-25] MEDS: Albuterol-Ipratrop 3 mg / 0.5 (3 ml) UD INH SCH ×4 (01:38→19:37)
[2018-02-25 08:01] LABS: HEMOGLOBIN 10.9 g/dL (11.0-16.0); MEAN CELL VOLUME 80.4 fL (81.0-99.0); MEAN CORPUSCULAR HEMOGLOBIN 28.4 pg (27.0-31.0); MEAN CORPUSCULAR HGB CONC 35.3 g/dL (33.0-37.0); MEAN PLATELET VOLUME 7.5 fL (7.2-11.7); RBC 3.84 Mil/uL (3.80-5.20); RED CELL DISTRIBUTION WIDTH 16.6 % (11.5-14.5)
[2018-02-25 08:25] LABS: ALBUMIN 3.5 g/dL (3.5-5.0); CALCIUM 5.4 mg/dl (8.6-10.4)
--- NOTE | 2018-02-25 09:44 | CP.PCM.PN ---
<Kristal Mcgill - Last Filed: 02/25/18 09:46> Subjective - Date & Time of Evaluation Date of Evaluation: 02/25/18 Time of Evaluation: 06:45 - Subjective Subjective: PGY4 GI Follow-up Pt seen and examined bedside + SOB Denies any abd pain, nausea or vomiting Denies nay diarrhea tolerating diet, but decreased appetite ROS: 12 point ROS conducted, neg other than above Objective - Vital Signs/Intake and Output Vital Signs (last 24 hours): Temp Pulse Resp BP Pulse Ox 98.3 F 74 20 152/88 H 97 02/25/18 08:00 02/25/18 08:00 02/25/18 08:00 02/25/18 08:00 02/25/18 08:00 Intake and Output: 02/25/18 02/25/18 06:59 18:59 Intake Total 220 Output Total 0 Balance 220 - Medications Medications: Current Medications Albuterol/Ipratropium (Duoneb 3 Mg/0.5 Mg (3 Ml) Ud) 3 ml INH RQ6 [facility] Last Admin: 02/25/18 07:42 Dose: 3 ml Amlodipine Besylate (Norvasc) 10 mg PO DAILY [facility] Last Admin: 02/24/18 11:04 Dose: 10 mg Aspirin (Aspirin Chewable) 81 mg PO DAILY [facility] Last Admin: 02/24/18 11:04 Dose: 81 mg Calcitriol (Rocaltrol) 0.25 mcg PO DAILY [facility] Last Admin: 02/24/18 11:23 Dose: 0.25 mcg Calcium Carbonate (Tums) 500 mg PO BID [facility] Last Admin: 02/24/18 19:27 Dose: 500 mg Heparin Sodium (Porcine) (Heparin) 5,000 units SC Q12 [facility] Last Admin: 02/24/18 21:43 Dose: 5,000 units Hydralazine HCl (Apresoline) 50 mg PO BID [facility] Last Admin: 02/24/18 18:18 Dose: 50 mg Aztreonam 500 mg/ Sodium (Chloride) 100 mls @ 100 mls/hr IVPB Q8H [facility] PRN Reason: Protocol Last Admin: 02/25/18 03:12 Dose: 100 mls/hr Metoprolol Succinate (Toprol Xl) 100 mg PO BID [facility] Last Admin: 02/24/18 18:40 Dose: 100 mg Ondansetron HCl (Zofran Inj) 4 mg IVP Q8 PRN PRN Reason: PRN Nausea Last Admin: 02/23/18 15:09 Dose: 4 mg Prednisone (Prednisone Tab) 5 mg PO DAILY [facility] Last Admin: 02/24/18 11:05 Dose: 5 mg Sodium Bicarbonate (Sodium Bicarbonate Tab) 650 mg PO TID [facility] Last Admin: 02/24/18 18:18 Dose: 650 mg Tacrolimus (Prograf) 5 mg PO Q12 [facility] Last Admin: 02/24/18 22:59 Dose: 5 mg Tacrolimus (Prograf Cap) 3 mg PO Q12 [facility] Last Admin: 02/24/18 21:45 Dose: 3 mg - Labs Labs: 02/25/18 07:51 02/25/18 07:51 - Constitutional Appears: Non-toxic - Head Exam Head Exam: ATRAUMATIC, NORMOCEPHALIC - Eye Exam Eye Exam: Normal appearance - ENT Exam ENT Exam: Mucous Membranes Moist, Normal Exam - Neck Exam Neck Exam: Normal Inspection - Respiratory Exam Respiratory Exam: Rhonchi, Wheezes. absent: Stridor - Cardiovascular Exam Cardiovascular Exam: REGULAR RHYTHM, +S1, +S2 - GI/Abdominal Exam GI & Abdominal Exam: Soft, Normal Bowel Sounds. absent: Distended, Firm, Guarding, Rigid, Tenderness - Extremities Exam Extremities Exam: absent: Joint Swelling, Pedal Edema - Neurological Exam Neurological Exam: Alert, Awake, Oriented x3 - Psychiatric Exam Psychiatric exam: Normal Affect, Normal Mood - Skin Skin Exam: Dry, Intact, Normal Color, Warm Assessment and Plan - Assessment and Plan (Free Text) Assessment: Yoselyn Coelho is a 62F w/ hx of DM, obesity, HTN, CKD s/p kidney transplant in 2010 who presents to hospital with complaint of fatigue and dehydration. Nausea Diarrhea, r/o infectious etiology, supra-therapeutic tacrolimus levels; DDx: abcx induced Obesity CKD UTI Plan: - nausea resolved, waiting on tacrolimus levels -recommend stool w/u; c.diff, culture, o&P - Diet as tolerated - Anti-emetic therapy PRN - Follow up nephrology recommendations - Continue with antibiotic therapy as per ID - Will continue to monitor patient clinical course D/W Dr. Guadarrama <Phil Guadarrama Y - Last Filed: 02/25/18 10:35> Objective - Vital Signs/Intake and Output Vital Signs (last 24 hours): Temp Pulse Resp BP Pulse Ox 98.3 F 74 20 152/88 H 97 02/25/18 08:00 02/25/18 08:00 02/25/18 08:00 02/25/18 08:00 02/25/18 08:00 Intake and Output: 02/25/18 02/25/18 06:59 18:59 Intake Total 220 Output Total 0 Balance 220 - Medications Medications: Current Medications Albuterol/Ipratropium (Duoneb 3 Mg/0.5 Mg (3 Ml) Ud) 3 ml INH RQ6 [facility] Last Admin: 02/25/18 07:42 Dose: 3 ml Amlodipine Besylate (Norvasc) 10 mg PO DAILY [facility] Last Admin: 02/25/18 09:48 Dose: 10 mg Aspirin (Aspirin Chewable) 81 mg PO DAILY [facility] Last Admin: 02/25/18 09:48 Dose: 81 mg Calcitriol (Rocaltrol) 0.25 mcg PO DAILY [facility] Last Admin: 02/25/18 09:49 Dose: 0.25 mcg Calcium Carbonate (Tums) 500 mg PO BID [facility] Last Admin: 02/25/18 09:49 Dose: 500 mg Heparin Sodium (Porcine) (Heparin) 5,000 units SC Q12 [facility] Last Admin: 02/25/18 09:48 Dose: 5,000 units Hydralazine HCl (Apresoline) 50 mg PO BID [facility] Last Admin: 02/25/18 09:48 Dose: 50 mg Aztreonam 500 mg/ Sodium (Chloride) 100 mls @ 100 mls/hr IVPB Q8H [facility] PRN Reason: Protocol Last Admin: 02/25/18 03:12 Dose: 100 mls/hr Metoprolol Succinate (Toprol Xl) 100 mg PO BID [facility] Last Admin: 02/25/18 09:48 Dose: 100 mg Ondansetron HCl (Zofran Inj) 4 mg IVP Q8 PRN PRN Reason: PRN Nausea Last Admin: 02/23/18 15:09 Dose: 4 mg Prednisone (Prednisone Tab) 5 mg PO DAILY [facility] Last Admin: 02/25/18 09:49 Dose: 5 mg Sodium Bicarbonate (Sodium Bicarbonate Tab) 650 mg PO TID [facility] Last Admin: 02/25/18 09:47 Dose: 650 mg Tacrolimus (Prograf) 5 mg PO Q12 [facility] Last Admin: 02/25/18 09:49 Dose: 5 mg Tacrolimus (Prograf Cap) 3 mg PO Q12 [facility] Last Admin: 02/25/18 09:48 Dose: 3 mg - Labs Labs: 02/25/18 07:51 02/25/18 07:51 Attending/Attestation - Attestation I have personally seen and examined this patient.: Yes I have fully participated in the care of the patient.: Yes I have reviewed all pertinent clinical information, including history, physical exam and plan: Yes Notes (Text): 02/25/18 10:30 I have seen and examined patient with GI fellow. No acute events overnight, her nausea has completely resolved though she reports ongoing reduced appetite. Additionally today she reports significant dyspnea at rest along with wheezing. She denies abdominal pain, vomiting, fever/chills. She does report ongoing loose bowel movements following initiation of antibiotic therapy. Review of vitals from today shows elevated BP. Obesity HTN DM CKD s/p kidney transplant on immunosuppression - Diet as tolerated - Anti-emetic therapy PRN - Maintain strict blood glucose control - Creatinine worsened, follow up nephrology recommendations. Awaiting prograf level. - Obtain CXR given progressive dyspnea with elevated WBC - Follow up ID recommendations - Will obtain stool for c-difficile - No planned inpatient GI intervention, will sign off case. Patient will require subsequent outpatient follow up for colonoscopy given family history of colon cancer, office contact information provided to patient. Please reconsult as necessary, thank you.
[2018-02-25] MEDS: Metoprolol Succinate 100 mg XL Tab PO SCH ×2 (09:48→19:37)
[2018-02-25] MEDS: Calcium Carbonate 500 mg Chewable Antacid Tab PO SCH ×2 (09:49→19:38)
--- NOTE | 2018-02-25 10:55 | CP.PCM.PN ---
Subjective - Date & Time of Evaluation Date of Evaluation: 02/25/18 Time of Evaluation: 08:00 - Subjective Subjective: + SOB Denies any abd pain, nausea or vomiting little urine output may need hd STAT cxr SENT Objective - Vital Signs/Intake and Output Vital Signs (last 24 hours): Temp Pulse Resp BP Pulse Ox 98.3 F 74 20 152/88 H 97 02/25/18 08:00 02/25/18 08:00 02/25/18 08:00 02/25/18 08:00 02/25/18 08:00 Intake and Output: 02/25/18 02/25/18 06:59 18:59 Intake Total 220 Output Total 0 Balance 220 - Medications Medications: Current Medications Albuterol/Ipratropium (Duoneb 3 Mg/0.5 Mg (3 Ml) Ud) 3 ml INH RQ6 [facility] Last Admin: 02/25/18 07:42 Dose: 3 ml Amlodipine Besylate (Norvasc) 10 mg PO DAILY [facility] Last Admin: 02/25/18 09:48 Dose: 10 mg Aspirin (Aspirin Chewable) 81 mg PO DAILY [facility] Last Admin: 02/25/18 09:48 Dose: 81 mg Calcitriol (Rocaltrol) 0.25 mcg PO DAILY [facility] Last Admin: 02/25/18 09:49 Dose: 0.25 mcg Calcium Carbonate (Tums) 500 mg PO BID [facility] Last Admin: 02/25/18 09:49 Dose: 500 mg Heparin Sodium (Porcine) (Heparin) 5,000 units SC Q12 [facility] Last Admin: 02/25/18 09:48 Dose: 5,000 units Hydralazine HCl (Apresoline) 50 mg PO BID [facility] Last Admin: 02/25/18 09:48 Dose: 50 mg Aztreonam 500 mg/ Sodium (Chloride) 100 mls @ 100 mls/hr IVPB Q8H [facility] PRN Reason: Protocol Last Admin: 02/25/18 03:12 Dose: 100 mls/hr Metoprolol Succinate (Toprol Xl) 100 mg PO BID [facility] Last Admin: 02/25/18 09:48 Dose: 100 mg Ondansetron HCl (Zofran Inj) 4 mg IVP Q8 PRN PRN Reason: PRN Nausea Last Admin: 02/23/18 15:09 Dose: 4 mg Prednisone (Prednisone Tab) 5 mg PO DAILY [facility] Last Admin: 02/25/18 09:49 Dose: 5 mg Sodium Bicarbonate (Sodium Bicarbonate Tab) 650 mg PO TID [facility] Last Admin: 02/25/18 09:47 Dose: 650 mg Tacrolimus (Prograf) 5 mg PO Q12 [facility] Last Admin: 02/25/18 09:49 Dose: 5 mg Tacrolimus (Prograf Cap) 3 mg PO Q12 [facility] Last Admin: 02/25/18 09:48 Dose: 3 mg - Labs Labs: 02/25/18 07:51 02/25/18 07:51 - Constitutional Appears: No Acute Distress, Chronically Ill - Head Exam Head Exam: NORMOCEPHALIC - Eye Exam Eye Exam: absent: Scleral icterus - ENT Exam ENT Exam: Mucous Membranes Dry - Neck Exam Neck Exam: absent: Lymphadenopathy - Respiratory Exam Respiratory Exam: Decreased Breath Sounds, Rhonchi, Wheezes - Cardiovascular Exam Cardiovascular Exam: REGULAR RHYTHM, +S1, +S2 - GI/Abdominal Exam GI & Abdominal Exam: Distended, Soft - Rectal Exam Rectal Exam: Deferred Assessment and Plan (1) Anuria Status: Acute (2) -donor kidney transplant recipient Status: Acute (3) Dehydration Status: Acute (4) Hyponatremia Status: Acute (5) Renal failure Status: Acute (6) NATE (acute kidney injury) Status: Acute (7) History of kidney transplant Status: Acute - Assessment and Plan (Free Text) Assessment: NATE MAY NEED HD STAT CXR ORDERED
--- NOTE | 2018-02-25 12:08 | RAD ---
HISTORY: r/o pneumonia vs CHF COMPARISON: No prior. FINDINGS: LUNGS: Inspiratory volume appears somewhat limited. This may cause crowding of bronchovascular markings in the right greater than left lung bases. Limited atelectasis or patchy infiltrate is not excluded at the medial right base. PLEURA: No pneumothorax bilaterally. Limited pleural thickening is questioned at the lateral left chest wall potentially related to multiple chronic healed rib fractures laterally. Right pleural space unremarkable. CARDIOVASCULAR: Prominent cardiac silhouette is appreciated with mild pulmonary vascular congestion. Note is made of a wall stent in the left axilla. OSSEOUS STRUCTURES: No significant abnormalities. VISUALIZED UPPER ABDOMEN: Normal. OTHER FINDINGS: None. IMPRESSION: Limited CHF in question. Crowding of the bronchovascular markings is seen in the right greater than left lung bases with airspace disease not favored. Clinically correlate further. Left axillary wall stent.
--- NOTE | 2018-02-25 12:51 | PCM.PROC ---
Procedures Attestation:: I certify that I have explained the specified Operation(s) or Procedure(s), risks, benefits and reasonable alternatives to the Patient and/or other person responsible. The opportunity was given to ask questions and all questions answered - Central Line Placement Right Internal Jugular Hemodialysis Access Aseptic technique was employed throughout the procedure: Hand Hygiene done prior to procedure, Full sterile barriers (mask, hair cover, sterile gown, sterile gloves), Full body sterile drape, Chloraprep Antiseptic: 30 second prep for IJ or SC sites CVP Time Out Performed: Yes Central Line Prep: Chlorhexidine-Alcohol Combination Local Anesthesia Used: Lidocaine 1% Amount of Anesthesia Used (mls): 8 Ultrasound Used for Placement: Yes Central Line Lumen Inserted: double Central Line Length: 16 cm Post Procedure: Sutured in Place, Good Blood Return, All Ports Aspirated, Flushed, Capped, Sterile Dressing Applied Secured by: Suture Post procedure dressing: Gauze, Chlorhexidine disc (Biopatch) Post Procedure X-Ray: Yes Patient Tolerated Procedure: Well Immediate Complications: None
--- NOTE | 2018-02-25 13:39 | CP.PCM.CON ---
History of Present Illness - History of Present Illness History of Present Illness: Surgery- Dr. Finney Reason for Consult: temporary dialysis access 62F pmhx significant for CKD s/p kidney transplant in 2010, DM, HTN presented to [facility] for fatigue and dehydration. Surgery was consulted for worsening kidney function and need for hemodialysis access. c.o shortness of breath. Patient currently denies nausea, vomiting, diarrhea, fevers chills, chest pain PMH: stated above PSH: Kidney transplant (2010) Social history: non-smoker, no ETOH use Famliy history: father (colon cancer), diagnosed age 68 ALL: PCN 12 pt ROS conducted, negative otherwise noted above Review of Systems - Review of Systems All systems: reviewed and no additional remarkable complaints except - Constitutional Constitutional: As Per HPI Past Patient History - Infectious Disease Hx of Infectious Diseases: None - Past Medical History & Family History Past Medical History?: Yes - Past Social History Smoking Status: Never Smoked - CARDIAC Hx Hypertension: Yes - RENAL Hx Dialysis: Yes Hx Renal Failure: Yes Other/Comment: kidney transplant(2010) - ENDOCRINE/METABOLIC Hx Diabetes Mellitus Type 2: Yes - MUSCULOSKELETAL/RHEUMATOLOGICAL Hx Falls: No - PSYCHIATRIC Hx Substance Use: No - SURGICAL HISTORY Hx Angioplasty: Yes (same time as partial colectomy) Hx Kidney Transplant: Yes (2010) Hx Vascular Access Device: Yes (fistula left arm) - ANESTHESIA Hx Anesthesia: Yes Hx Anesthesia Reactions: No Hx Malignant Hyperthermia: No Has any member of the family had a problem w/ anesthesia?: No Meds Allergies/Adverse Reactions: Allergies Allergy/AdvReac Type Severity Reaction Status Date / Time Penicillins Allergy Verified 02/22/18 09:22 - Medications Medications: Current Medications Albuterol/Ipratropium (Duoneb 3 Mg/0.5 Mg (3 Ml) Ud) 3 ml INH RQ6 [facility] Last Admin: 02/25/18 13:22 Dose: 3 ml Amlodipine Besylate (Norvasc) 10 mg PO DAILY [facility] Last Admin: 02/25/18 09:48 Dose: 10 mg Aspirin (Aspirin Chewable) 81 mg PO DAILY [facility] Last Admin: 02/25/18 09:48 Dose: 81 mg Calcitriol (Rocaltrol) 0.25 mcg PO DAILY [facility] Last Admin: 02/25/18 09:49 Dose: 0.25 mcg Calcium Carbonate (Tums) 500 mg PO BID [facility] Last Admin: 02/25/18 09:49 Dose: 500 mg Heparin Sodium (Porcine) (Heparin) 5,000 units SC Q12 [facility] Last Admin: 02/25/18 09:48 Dose: 5,000 units Hydralazine HCl (Apresoline) 50 mg PO BID [facility] Last Admin: 02/25/18 09:48 Dose: 50 mg Aztreonam 500 mg/ Sodium (Chloride) 100 mls @ 100 mls/hr IVPB Q8H [facility] PRN Reason: Protocol Last Admin: 02/25/18 03:12 Dose: 100 mls/hr Metoprolol Succinate (Toprol Xl) 100 mg PO BID [facility] Last Admin: 02/25/18 09:48 Dose: 100 mg Ondansetron HCl (Zofran Inj) 4 mg IVP Q8 PRN PRN Reason: PRN Nausea Last Admin: 02/23/18 15:09 Dose: 4 mg Prednisone (Prednisone Tab) 5 mg PO DAILY [facility] Last Admin: 02/25/18 09:49 Dose: 5 mg Sodium Bicarbonate (Sodium Bicarbonate Tab) 650 mg PO TID [facility] Last Admin: 02/25/18 09:47 Dose: 650 mg Tacrolimus (Prograf) 5 mg PO Q12 [facility] Last Admin: 02/25/18 09:49 Dose: 5 mg Tacrolimus (Prograf Cap) 3 mg PO Q12 [facility] Last Admin: 02/25/18 09:48 Dose: 3 mg Physical Exam - Constitutional Appears: Non-toxic, No Acute Distress - Head Exam Head Exam: ATRAUMATIC - Eye Exam Eye Exam: EOMI. absent: Scleral icterus - ENT Exam ENT Exam: Mucous Membranes Moist - Respiratory Exam Respiratory Exam: NORMAL BREATHING PATTERN. absent: Accessory Muscle Use, Respiratory Distress - Cardiovascular Exam Cardiovascular Exam: +S1, +S2. absent: Bradycardia, Tachycardia - GI/Abdominal Exam GI & Abdominal Exam: Soft. absent: Distended, Guarding, Hernia, Rigid, Tenderness - Exam Additional comments: Bo in place - Extremities Exam Extremities exam: Positive for: normal inspection. Negative for: calf tenderness - Neurological Exam Neurological exam: Alert, Oriented x3 - Psychiatric Exam Psychiatric exam: Flat Affect, Normal Affect - Skin Skin Exam: Intact, Warm Results - Vital Signs Recent Vital Signs: Last Vital Signs Temp 98.3 F 02/25/18 08:00 Pulse 74 02/25/18 08:00 Resp 20 02/25/18 08:00 BP 152/88 H 02/25/18 08:00 Pulse Ox 97 02/25/18 08:00 - Labs Result Diagrams: 02/25/18 07:51 02/25/18 07:51 Labs: Laboratory Results - last 24 hr 02/25/18 02/25/18 07:51 07:51 WBC 12.0 H RBC 3.84 Hgb 10.9 L Hct 30.9 L MCV 80.4 L MCH 28.4 MCHC 35.3 RDW 16.6 H Plt Count 172 MPV 7.5 Sodium 127 L Potassium 5.2 Chloride 97 L Carbon Dioxide 13 L Anion Gap 22 H BUN 44 H Creatinine 9.7 H* D Est GFR ( Amer) 5 Est GFR (Non-Af Amer) 4 Random Glucose 127 H Calcium 5.4 L* Total Bilirubin 1.2 AST 23 ALT 17 Alkaline Phosphatase 82 Total Creatine Kinase 649 H Total Protein 7.1 Albumin 3.5 Globulin 3.7 Albumin/Globulin Ratio 1.0 Assessment & Plan - Assessment and Plan (Free Text) Assessment: 62F w/ CKD s/p kidney transplant currently in Kidney failure Plan: - IJ dialysis catheter placed at bedside - CXR after placement; OK to use for dialysis - d[facility]
--- NOTE | 2018-02-25 13:46 | CP.PCM.PN ---
Subjective - Date & Time of Evaluation Date of Evaluation: 02/25/18 Time of Evaluation: 13:44 - Subjective Subjective: seen and examined sitting up in bed, sob minimal urine no cp/dizziness/cough/f/c/diarrhea +nausea +dry heaves Objective - Vital Signs/Intake and Output Vital Signs (last 24 hours): Temp Pulse Resp BP Pulse Ox 98.3 F 74 20 152/88 H 99 02/25/18 08:00 02/25/18 08:00 02/25/18 08:00 02/25/18 08:00 02/25/18 13:42 Intake and Output: 02/25/18 02/25/18 06:59 18:59 Intake Total 220 Output Total 0 Balance 220 - Medications Medications: Current Medications Albuterol/Ipratropium (Duoneb 3 Mg/0.5 Mg (3 Ml) Ud) 3 ml INH RQ6 [facility] Last Admin: 02/25/18 13:22 Dose: 3 ml Amlodipine Besylate (Norvasc) 10 mg PO DAILY [facility] Last Admin: 02/25/18 09:48 Dose: 10 mg Aspirin (Aspirin Chewable) 81 mg PO DAILY [facility] Last Admin: 02/25/18 09:48 Dose: 81 mg Calcitriol (Rocaltrol) 0.25 mcg PO DAILY [facility] Last Admin: 02/25/18 09:49 Dose: 0.25 mcg Calcium Carbonate (Tums) 500 mg PO BID [facility] Last Admin: 02/25/18 09:49 Dose: 500 mg Heparin Sodium (Porcine) (Heparin) 5,000 units SC Q12 [facility] Last Admin: 02/25/18 09:48 Dose: 5,000 units Hydralazine HCl (Apresoline) 50 mg PO BID [facility] Last Admin: 02/25/18 09:48 Dose: 50 mg Aztreonam 500 mg/ Sodium (Chloride) 100 mls @ 100 mls/hr IVPB Q8H [facility] PRN Reason: Protocol Last Admin: 02/25/18 03:12 Dose: 100 mls/hr Metoprolol Succinate (Toprol Xl) 100 mg PO BID [facility] Last Admin: 02/25/18 09:48 Dose: 100 mg Ondansetron HCl (Zofran Inj) 4 mg IVP Q8 PRN PRN Reason: PRN Nausea Last Admin: 02/23/18 15:09 Dose: 4 mg Prednisone (Prednisone Tab) 5 mg PO DAILY [facility] Last Admin: 02/25/18 09:49 Dose: 5 mg Sodium Bicarbonate (Sodium Bicarbonate Tab) 650 mg PO TID [facility] Last Admin: 02/25/18 09:47 Dose: 650 mg Tacrolimus (Prograf) 5 mg PO Q12 [facility] Last Admin: 02/25/18 09:49 Dose: 5 mg Tacrolimus (Prograf Cap) 3 mg PO Q12 [facility] Last Admin: 02/25/18 09:48 Dose: 3 mg - Labs Labs: 02/25/18 07:51 02/25/18 07:51 - Constitutional Appears: Non-toxic, Chronically Ill - Head Exam Head Exam: NORMAL INSPECTION, NORMOCEPHALIC - Eye Exam Eye Exam: Normal appearance Pupil Exam: PERRL - ENT Exam ENT Exam: Mucous Membranes Moist, Normal Exam - Neck Exam Neck Exam: Normal Inspection - Respiratory Exam Respiratory Exam: Decreased Breath Sounds, Rales, NORMAL BREATHING PATTERN - Cardiovascular Exam Cardiovascular Exam: RRR - GI/Abdominal Exam GI & Abdominal Exam: Distended, Soft, Normal Bowel Sounds (no tenderness over transplant kidney) - Extremities Exam Extremities Exam: Full ROM, Normal Inspection - Back Exam Back Exam: tenderness (non functioning jackie lue) - Neurological Exam Neurological Exam: Alert, Awake, Oriented x3 - Psychiatric Exam Psychiatric exam: Normal Affect, Normal Mood - Skin Skin Exam: Dry, Intact Assessment and Plan (1) -donor kidney transplant recipient Status: Acute (2) Dehydration Status: Acute (3) NATE (acute kidney injury) Status: Acute (4) History of kidney transplant Status: Acute (5) Urinary retention Status: Acute (6) DM type 2 (diabetes mellitus, type 2) Status: Chronic (7) HTN (hypertension) Status: Chronic - Assessment and Plan (Free Text) Assessment: worsening nate, anuric plan for urgent hd today, after catheter insertion. consent in chart, orders written urology evaluation check prograf levels. maintain immunosuppression iv calcium gluconate, po calcium and calcitriol check urine cultures
--- NOTE | 2018-02-25 14:02 | RAD ---
HISTORY: s/p Shiley placement COMPARISON: 02/25/2018 at 10:58 a.m. FINDINGS: LUNGS: Lung volumes and noted-currently lung volumes are even more shallow. Patchy opacities are bilaterally present these are most confluent in the right lung base and in the right upper lung zone, coalescent areas of pulmonary edema versus coalescent pulmonary patchy infiltrates are considerations. Similar finding noted much smaller at the left lung base. These bilateral opacities have increased in conspicuity compared to the prior study. PLEURA: A minimal right pleural effusion is possible. No greater more significant appearing t pleural effusion identified, no pneumothorax apparent. CARDIOVASCULAR: Cardiomegaly abort OSSEOUS STRUCTURES: Mild left lateral rib deformities consistent with old healed trauma and likely some contiguous left pleural reaction -stable appearance VISUALIZED UPPER ABDOMEN: Normal. OTHER FINDINGS: A right interval central line large dual lumen bore catheter internal jugular vein approach with tip in superior vena cava suggested. -assumed for hemodialysis access Left axillary vascular stent present-similar Cervical neck possible thyroid related surgical clips present - unchanged. IMPRESSION: Bilateral patchy coalescent opacities -increased since prior exam in this patient [employer] noted shallow lung volumes. Coalescent areas of pulmonary edema in a patient with known kidney transplant and large bore right jugular vein catheter insertion is 1 consideration. Patchy infiltrates are another. No gross pneumothorax. Additional findings as above
[2018-02-25 14:08] LABS: INR 1.1; PROTHROMBIN TIME 12.4 SECONDS (9.7-12.2)
[2018-02-25 15:18] LABS: HEPATITIS B SURFACE AG Negative (NEGATIVE)
[2018-02-25 15:23] LABS: HEPATITIS B CORE AB NEGATIVE (NEGATIVE)
--- NOTE | 2018-02-25 15:28 | CP.PCM.PN ---
Subjective - Date & Time of Evaluation Date of Evaluation: 02/25/18 Time of Evaluation: 11:40 - Subjective Subjective: clinically same Objective - Vital Signs/Intake and Output Vital Signs (last 24 hours): Temp Pulse Resp BP Pulse Ox 98.3 F 74 20 152/88 H 99 02/25/18 08:00 02/25/18 08:00 02/25/18 08:00 02/25/18 08:00 02/25/18 13:42 Intake and Output: 02/25/18 02/25/18 06:59 18:59 Intake Total 220 Output Total 0 Balance 220 - Medications Medications: Current Medications Albuterol/Ipratropium (Duoneb 3 Mg/0.5 Mg (3 Ml) Ud) 3 ml INH RQ6 [facility] Last Admin: 02/25/18 13:22 Dose: 3 ml Amlodipine Besylate (Norvasc) 10 mg PO DAILY [facility] Last Admin: 02/25/18 09:48 Dose: 10 mg Aspirin (Aspirin Chewable) 81 mg PO DAILY [facility] Last Admin: 02/25/18 09:48 Dose: 81 mg Calcitriol (Rocaltrol) 0.25 mcg PO DAILY [facility] Last Admin: 02/25/18 09:49 Dose: 0.25 mcg Calcium Carbonate (Tums) 500 mg PO BID [facility] Last Admin: 02/25/18 09:49 Dose: 500 mg Heparin Sodium (Porcine) (Heparin) 5,000 units SC Q12 [facility] Last Admin: 02/25/18 09:48 Dose: 5,000 units Hydralazine HCl (Apresoline) 50 mg PO BID [facility] Last Admin: 02/25/18 09:48 Dose: 50 mg Aztreonam 500 mg/ Sodium (Chloride) 100 mls @ 100 mls/hr IVPB Q8H [facility] PRN Reason: Protocol Last Admin: 02/25/18 03:12 Dose: 100 mls/hr Calcium Gluconate 4.65 meq/ (Sodium Chloride) 110 mls @ 100 mls/hr IV ONCE ONE Stop: 02/25/18 15:35 Metoprolol Succinate (Toprol Xl) 100 mg PO BID [facility] Last Admin: 02/25/18 09:48 Dose: 100 mg Ondansetron HCl (Zofran Inj) 4 mg IVP Q8 PRN PRN Reason: PRN Nausea Last Admin: 02/23/18 15:09 Dose: 4 mg Prednisone (Prednisone Tab) 5 mg PO DAILY [facility] Last Admin: 02/25/18 09:49 Dose: 5 mg Sodium Bicarbonate (Sodium Bicarbonate Tab) 650 mg PO TID [facility] Last Admin: 02/25/18 09:47 Dose: 650 mg Tacrolimus (Prograf) 5 mg PO Q12 [facility] Last Admin: 02/25/18 09:49 Dose: 5 mg Tacrolimus (Prograf Cap) 3 mg PO Q12 [facility] Last Admin: 02/25/18 09:48 Dose: 3 mg - Labs Labs: 02/25/18 07:51 02/25/18 07:51 PT 12.4 SECONDS (9.7-12.2) H 02/25/18 13:48 INR 1.1 02/25/18 13:48 - Constitutional Appears: Well - Head Exam Head Exam: ATRAUMATIC, NORMAL INSPECTION, NORMOCEPHALIC - Eye Exam Eye Exam: EOMI, Normal appearance, PERRL Pupil Exam: NORMAL ACCOMODATION, PERRL - ENT Exam ENT Exam: Mucous Membranes Moist, Normal Exam - Neck Exam Neck Exam: Full ROM, Normal Inspection. absent: Lymphadenopathy - Respiratory Exam Respiratory Exam: Decreased Breath Sounds - Cardiovascular Exam Cardiovascular Exam: REGULAR RHYTHM, +S1, +S2 - GI/Abdominal Exam GI & Abdominal Exam: Soft, Diminished Bowel Sounds - Rectal Exam Rectal Exam: Deferred Assessment and Plan (1) Anuria Status: Acute (2) -donor kidney transplant recipient Status: Acute (3) Dehydration Status: Acute (4) Hyponatremia Status: Acute (5) Renal failure Status: Acute (6) NATE (acute kidney injury) Status: Acute (7) History of kidney transplant Status: Acute (8) Urinary retention Status: Acute (9) DM type 2 (diabetes mellitus, type 2) Status: Chronic (10) HTN (hypertension) Status: Chronic
[2018-02-25 15:36] LABS: HEPATITIS C ANTIBODY NEGATIVE (NEGATIVE)
[2018-02-26] MEDS: Albuterol-Ipratrop 3 mg / 0.5 (3 ml) UD INH SCH ×4 (01:21→20:02)
[2018-02-26] MEDS: Metoprolol Succinate 100 mg XL Tab PO SCH ×2 (09:49→18:01)
[2018-02-26] MEDS: Calcium Carbonate 500 mg Chewable Antacid Tab PO SCH ×2 (09:51→18:02)
--- NOTE | 2018-02-26 10:11 | CP.PCM.PN ---
Subjective - Date & Time of Evaluation Date of Evaluation: 02/26/18 Time of Evaluation: 09:50 - Subjective Subjective: Surgery- Dr. Finney Patient seen and examined at bedside this AM. Tolerated Dialysis through the temporary dialysis catheter in RIJ. Removed 5L. Pt states feeling better. Bo in place. Denies, nausea, vomiting, diarrhea, chest pain, shortness of breath. Objective - Vital Signs/Intake and Output Vital Signs (last 24 hours): Temp Pulse Resp BP Pulse Ox 97.5 F L 92 H 20 157/80 H 96 02/26/18 08:37 02/26/18 08:37 02/26/18 08:37 02/26/18 08:37 02/26/18 08:37 Intake and Output: 02/26/18 02/26/18 06:59 18:59 Intake Total 100 Output Total 15 Balance 85 - Medications Medications: Current Medications Albuterol/Ipratropium (Duoneb 3 Mg/0.5 Mg (3 Ml) Ud) 3 ml INH RQ6 [facility] Last Admin: 02/26/18 07:21 Dose: 3 ml Amlodipine Besylate (Norvasc) 10 mg PO DAILY [facility] Last Admin: 02/26/18 09:47 Dose: 10 mg Aspirin (Aspirin Chewable) 81 mg PO DAILY [facility] Last Admin: 02/26/18 09:46 Dose: 81 mg Calcitriol (Rocaltrol) 0.25 mcg PO DAILY [facility] Last Admin: 02/25/18 09:49 Dose: 0.25 mcg Calcium Carbonate (Tums) 500 mg PO BID [facility] Last Admin: 02/26/18 09:51 Dose: 500 mg Heparin Sodium (Porcine) (Heparin) 5,000 units SC Q12 [facility] Last Admin: 02/26/18 09:47 Dose: 5,000 units Hydralazine HCl (Apresoline) 50 mg PO BID [facility] Last Admin: 02/26/18 09:46 Dose: 50 mg Aztreonam 500 mg/ Sodium (Chloride) 100 mls @ 100 mls/hr IVPB Q8H [facility] PRN Reason: Protocol Last Admin: 02/26/18 03:42 Dose: 100 mls/hr Metoprolol Succinate (Toprol Xl) 100 mg PO BID [facility] Last Admin: 02/26/18 09:49 Dose: 100 mg Ondansetron HCl (Zofran Inj) 4 mg IVP Q8 PRN PRN Reason: PRN Nausea Last Admin: 02/23/18 15:09 Dose: 4 mg Prednisone (Prednisone Tab) 5 mg PO DAILY [facility] Last Admin: 02/26/18 09:47 Dose: 5 mg Sodium Bicarbonate (Sodium Bicarbonate Tab) 650 mg PO TID [facility] Last Admin: 02/26/18 09:49 Dose: 650 mg Tacrolimus (Prograf) 5 mg PO Q12 [facility] Last Admin: 02/26/18 09:47 Dose: 5 mg Tacrolimus (Prograf Cap) 3 mg PO Q12 [facility] Last Admin: 02/26/18 09:48 Dose: 3 mg - Labs Labs: 02/25/18 07:51 02/25/18 07:51 PT 12.4 SECONDS (9.7-12.2) H 02/25/18 13:48 INR 1.1 02/25/18 13:48 - Constitutional Appears: Non-toxic, No Acute Distress - Head Exam Head Exam: ATRAUMATIC - Eye Exam Eye Exam: EOMI. absent: Scleral icterus - ENT Exam ENT Exam: Mucous Membranes Moist - Neck Exam Additional comments: R.BEVERLEY Shiley in place w/ Biopatch. no signs of hematoma - Respiratory Exam Respiratory Exam: NORMAL BREATHING PATTERN. absent: Accessory Muscle Use, Respiratory Distress - GI/Abdominal Exam GI & Abdominal Exam: Soft. absent: Distended, Firm, Guarding, Tenderness - Exam Additional comments: Bo in place - Neurological Exam Neurological Exam: Alert, Awake, Oriented x3 - Psychiatric Exam Psychiatric exam: Normal Affect - Skin Skin Exam: Intact, Warm Assessment and Plan - Assessment and Plan (Free Text) Assessment: 62F s/p temporary dialysis catheter placement POD#1 Plan: - Site C/D/I; tolerating dialysis via catheter - continue dialysis PRN - no further acute surgical intervention indicated at this time - reconsult as needed - d/[facility]
--- NOTE | 2018-02-26 11:47 | CP.PCM.PN ---
Subjective - Date & Time of Evaluation Date of Evaluation: 02/26/18 Time of Evaluation: 11:45 - Subjective Subjective: seen and examined no labs today tolerated hd yesterday breathing much improved still oliguric denies any n/v/d/dizziness/headache/f/c/dysuria urine cultures negative Objective - Vital Signs/Intake and Output Vital Signs (last 24 hours): Temp Pulse Resp BP Pulse Ox 97.5 F L 92 H 20 157/80 H 96 02/26/18 08:37 02/26/18 08:37 02/26/18 08:37 02/26/18 08:37 02/26/18 08:37 Intake and Output: 02/26/18 02/26/18 06:59 18:59 Intake Total 100 Output Total 15 Balance 85 - Medications Medications: Current Medications Albuterol/Ipratropium (Duoneb 3 Mg/0.5 Mg (3 Ml) Ud) 3 ml INH RQ6 [facility] Last Admin: 02/26/18 07:21 Dose: 3 ml Amlodipine Besylate (Norvasc) 10 mg PO DAILY [facility] Last Admin: 02/26/18 09:47 Dose: 10 mg Aspirin (Aspirin Chewable) 81 mg PO DAILY [facility] Last Admin: 02/26/18 09:46 Dose: 81 mg Calcitriol (Rocaltrol) 0.25 mcg PO DAILY [facility] Last Admin: 02/25/18 09:49 Dose: 0.25 mcg Calcium Carbonate (Tums) 500 mg PO BID [facility] Last Admin: 02/26/18 09:51 Dose: 500 mg Heparin Sodium (Porcine) (Heparin) 5,000 units SC Q12 [facility] Last Admin: 02/26/18 09:47 Dose: 5,000 units Hydralazine HCl (Apresoline) 50 mg PO BID [facility] Last Admin: 02/26/18 09:46 Dose: 50 mg Aztreonam 500 mg/ Sodium (Chloride) 100 mls @ 100 mls/hr IVPB Q8H [facility] PRN Reason: Protocol Last Admin: 02/26/18 10:52 Dose: 100 mls/hr Metoprolol Succinate (Toprol Xl) 100 mg PO BID [facility] Last Admin: 02/26/18 09:49 Dose: 100 mg Ondansetron HCl (Zofran Inj) 4 mg IVP Q8 PRN PRN Reason: PRN Nausea Last Admin: 02/23/18 15:09 Dose: 4 mg Prednisone (Prednisone Tab) 5 mg PO DAILY [facility] Last Admin: 02/26/18 09:47 Dose: 5 mg Sodium Bicarbonate (Sodium Bicarbonate Tab) 650 mg PO TID [facility] Last Admin: 02/26/18 09:49 Dose: 650 mg Tacrolimus (Prograf) 5 mg PO Q12 [facility] Last Admin: 02/26/18 09:47 Dose: 5 mg Tacrolimus (Prograf Cap) 3 mg PO Q12 [facility] Last Admin: 02/26/18 09:48 Dose: 3 mg - Labs Labs: 02/25/18 07:51 02/25/18 07:51 PT 12.4 SECONDS (9.7-12.2) H 02/25/18 13:48 INR 1.1 02/25/18 13:48 - Constitutional Appears: No Acute Distress, Chronically Ill - Head Exam Head Exam: NORMAL INSPECTION, NORMOCEPHALIC - Eye Exam Eye Exam: Normal appearance, PERRL - ENT Exam ENT Exam: Mucous Membranes Moist, Normal Exam - Neck Exam Neck Exam: Full ROM, Normal Inspection - Respiratory Exam Respiratory Exam: Decreased Breath Sounds, NORMAL BREATHING PATTERN - Cardiovascular Exam Cardiovascular Exam: REGULAR RHYTHM, RRR - GI/Abdominal Exam GI & Abdominal Exam: Distended (no tenderness transplant kidney), Soft - Extremities Exam Extremities Exam: Full ROM, Normal Inspection - Back Exam Back Exam: NORMAL INSPECTION - Neurological Exam Neurological Exam: Alert, Awake, Oriented x3 - Psychiatric Exam Psychiatric exam: Normal Affect, Normal Mood - Skin Skin Exam: Dry, Intact Assessment and Plan (1) -donor kidney transplant recipient Status: Acute (2) Dehydration Status: Acute (3) NATE (acute kidney injury) Status: Acute (4) History of kidney transplant Status: Acute (5) Urinary retention Status: Acute (6) DM type 2 (diabetes mellitus, type 2) Status: Chronic (7) HTN (hypertension) Status: Chronic - Assessment and Plan (Free Text) Assessment: urology evaluation needed hd tomorrow daily chems tacrolimus level (random) noted. lower dose. repeat levels
[2018-02-26 14:30] LABS: CALCIUM 6.9 mg/dl (8.6-10.4)
[2018-02-26 14:33] LABS: SQUAMOUS EPITHIAL 2 /hpf (0-5); URINE BACTERIA OCC (<OCC); URINE BILIRUBIN NEGATIVE (NEGATIVE); URINE BLOOD 3+ (NEGATIVE); URINE CLARITY Hazy (Clear); URINE COLOR Red (YELLOW); URINE GLUCOSE (UA) 1+ mg/dL (Normal); URINE LEUKOCYTE ESTERASE 2+ Leu/uL (Negative); URINE PROTEIN 2+ mg/dL (NEGATIVE); URINE UROBILINOGEN NORMAL mg/dL (0.2-1.0); WBC CLUMPS MANY /hpf
[2018-02-26 14:56] LABS: OSMOLALITY,URINE 271 mosm/kg (300-1000)
--- NOTE | 2018-02-26 15:36 | CP.PCM.PN ---
Subjective - Date & Time of Evaluation Date of Evaluation: 02/26/18 Time of Evaluation: 09:00 - Subjective Subjective: cultures neg less sob after HD will send ASO titer Objective - Vital Signs/Intake and Output Vital Signs (last 24 hours): Temp Pulse Resp BP Pulse Ox 97.5 F L 92 H 20 157/80 H 96 02/26/18 08:37 02/26/18 08:37 02/26/18 08:37 02/26/18 08:37 02/26/18 08:37 Intake and Output: 02/26/18 02/26/18 06:59 18:59 Intake Total 100 Output Total 15 Balance 85 - Medications Medications: Current Medications Albuterol/Ipratropium (Duoneb 3 Mg/0.5 Mg (3 Ml) Ud) 3 ml INH RQ6 [facility] Last Admin: 02/26/18 13:25 Dose: 3 ml Amlodipine Besylate (Norvasc) 10 mg PO DAILY [facility] Last Admin: 02/26/18 09:47 Dose: 10 mg Aspirin (Aspirin Chewable) 81 mg PO DAILY [facility] Last Admin: 02/26/18 09:46 Dose: 81 mg Calcitriol (Rocaltrol) 0.25 mcg PO DAILY [facility] Last Admin: 02/26/18 12:28 Dose: 0.25 mcg Calcium Carbonate (Tums) 500 mg PO BID [facility] Last Admin: 02/26/18 09:51 Dose: 500 mg Hydralazine HCl (Apresoline) 50 mg PO BID [facility] Last Admin: 02/26/18 09:46 Dose: 50 mg Aztreonam 500 mg/ Sodium (Chloride) 100 mls @ 100 mls/hr IVPB Q8H [facility] PRN Reason: Protocol Last Admin: 02/26/18 10:52 Dose: 100 mls/hr Metoprolol Succinate (Toprol Xl) 100 mg PO BID [facility] Last Admin: 02/26/18 09:49 Dose: 100 mg Ondansetron HCl (Zofran Inj) 4 mg IVP Q8 PRN PRN Reason: PRN Nausea Last Admin: 02/23/18 15:09 Dose: 4 mg Prednisone (Prednisone Tab) 5 mg PO DAILY [facility] Last Admin: 02/26/18 09:47 Dose: 5 mg Sodium Bicarbonate (Sodium Bicarbonate Tab) 650 mg PO TID [facility] Last Admin: 02/26/18 13:38 Dose: 650 mg Tacrolimus (Prograf) 5 mg PO Q12 [facility] Last Admin: 02/26/18 09:47 Dose: 5 mg - Labs Labs: 02/25/18 07:51 02/26/18 13:49 PT 12.4 SECONDS (9.7-12.2) H 02/25/18 13:48 INR 1.1 02/25/18 13:48 - Constitutional Appears: Non-toxic, Chronically Ill - Head Exam Head Exam: NORMOCEPHALIC - Eye Exam Eye Exam: PERRL - ENT Exam ENT Exam: Mucous Membranes Dry - Neck Exam Neck Exam: absent: Lymphadenopathy - Respiratory Exam Respiratory Exam: Decreased Breath Sounds - Cardiovascular Exam Cardiovascular Exam: REGULAR RHYTHM Assessment and Plan (1) Anuria Status: Acute (2) -donor kidney transplant recipient Status: Acute (3) Dehydration Status: Acute (4) Hyponatremia Status: Acute (5) Renal failure Status: Acute (6) NATE (acute kidney injury) Status: Acute (7) History of kidney transplant Status: Acute
--- NOTE | 2018-02-26 19:09 | CP.PCM.PN ---
Subjective - Date & Time of Evaluation Date of Evaluation: 02/26/18 Time of Evaluation: 12:00 - Subjective Subjective: clinically same Objective - Vital Signs/Intake and Output Vital Signs (last 24 hours): Temp Pulse Resp BP Pulse Ox 99.1 F 92 H 20 144/78 99 02/26/18 16:02 02/26/18 16:02 02/26/18 16:02 02/26/18 16:02 02/26/18 16:02 - Medications Medications: Current Medications Albuterol/Ipratropium (Duoneb 3 Mg/0.5 Mg (3 Ml) Ud) 3 ml INH RQ6 [facility] Last Admin: 02/26/18 13:25 Dose: 3 ml Amlodipine Besylate (Norvasc) 10 mg PO DAILY [facility] Last Admin: 02/26/18 09:47 Dose: 10 mg Aspirin (Aspirin Chewable) 81 mg PO DAILY [facility] Last Admin: 02/26/18 09:46 Dose: 81 mg Calcitriol (Rocaltrol) 0.25 mcg PO DAILY [facility] Last Admin: 02/26/18 12:28 Dose: 0.25 mcg Calcium Carbonate (Tums) 500 mg PO BID [facility] Last Admin: 02/26/18 18:02 Dose: 500 mg Hydralazine HCl (Apresoline) 50 mg PO BID [facility] Last Admin: 02/26/18 18:00 Dose: 50 mg Aztreonam 500 mg/ Sodium (Chloride) 100 mls @ 100 mls/hr IVPB Q8H [facility] PRN Reason: Protocol Last Admin: 02/26/18 10:52 Dose: 100 mls/hr Metoprolol Succinate (Toprol Xl) 100 mg PO BID [facility] Last Admin: 02/26/18 18:01 Dose: 100 mg Ondansetron HCl (Zofran Inj) 4 mg IVP Q8 PRN PRN Reason: PRN Nausea Last Admin: 02/23/18 15:09 Dose: 4 mg Prednisone (Prednisone Tab) 5 mg PO DAILY [facility] Last Admin: 02/26/18 09:47 Dose: 5 mg Sodium Bicarbonate (Sodium Bicarbonate Tab) 650 mg PO TID [facility] Last Admin: 02/26/18 18:01 Dose: 650 mg Tacrolimus (Prograf) 5 mg PO Q12 [facility] Last Admin: 02/26/18 09:47 Dose: 5 mg - Labs Labs: 02/25/18 07:51 02/26/18 13:49 PT 12.4 SECONDS (9.7-12.2) H 02/25/18 13:48 INR 1.1 02/25/18 13:48 - Constitutional Appears: Well - Head Exam Head Exam: ATRAUMATIC, NORMAL INSPECTION, NORMOCEPHALIC - Eye Exam Eye Exam: EOMI, Normal appearance, PERRL Pupil Exam: NORMAL ACCOMODATION, PERRL - ENT Exam ENT Exam: Mucous Membranes Moist, Normal Exam - Neck Exam Neck Exam: Full ROM, Normal Inspection. absent: Lymphadenopathy - Respiratory Exam Respiratory Exam: Decreased Breath Sounds - Cardiovascular Exam Cardiovascular Exam: REGULAR RHYTHM, +S1, +S2 - GI/Abdominal Exam GI & Abdominal Exam: Soft, Diminished Bowel Sounds - Rectal Exam Rectal Exam: Deferred Assessment and Plan (1) Anuria Status: Acute (2) -donor kidney transplant recipient Status: Acute (3) Dehydration Status: Acute (4) Hyponatremia Status: Acute (5) Renal failure Status: Acute (6) NATE (acute kidney injury) Status: Acute (7) History of kidney transplant Status: Acute (8) Urinary retention Status: Acute (9) DM type 2 (diabetes mellitus, type 2) Status: Chronic (10) HTN (hypertension) Status: Chronic
[2018-02-27] MEDS: Albuterol-Ipratrop 3 mg / 0.5 (3 ml) UD INH SCH ×4 (01:28→19:39)
[2018-02-27 08:29] LABS: CALCIUM 6.6 mg/dl (8.6-10.4)
[2018-02-27] MEDS: Calcium Carbonate 500 mg Chewable Antacid Tab PO SCH (10:51)
--- NOTE | 2018-02-27 11:05 | CP.PCM.PN ---
Subjective - Date & Time of Evaluation Date of Evaluation: 02/27/18 Time of Evaluation: 11:02 - Subjective Subjective: seen and examined breathing improved good appetite Objective - Vital Signs/Intake and Output Vital Signs (last 24 hours): Temp Pulse Resp BP Pulse Ox 98.1 F 99 H 20 159/86 H 97 02/27/18 08:54 02/27/18 08:54 02/27/18 08:54 02/27/18 08:54 02/27/18 08:54 Intake and Output: 02/27/18 02/27/18 06:59 18:59 Output Total 5 Balance -5 - Medications Medications: Current Medications Albuterol/Ipratropium (Duoneb 3 Mg/0.5 Mg (3 Ml) Ud) 3 ml INH RQ6 [facility] Last Admin: 02/27/18 07:28 Dose: 3 ml Amlodipine Besylate (Norvasc) 10 mg PO DAILY [facility] Last Admin: 02/26/18 09:47 Dose: 10 mg Aspirin (Aspirin Chewable) 81 mg PO DAILY [facility] Last Admin: 02/27/18 10:51 Dose: 81 mg Calcitriol (Rocaltrol) 0.5 mcg PO DAILY [facility] Calcium Carbonate (Tums) 500 mg PO TID [facility] Hydralazine HCl (Apresoline) 50 mg PO BID [facility] Last Admin: 02/26/18 18:00 Dose: 50 mg Aztreonam 500 mg/ Sodium (Chloride) 100 mls @ 100 mls/hr IVPB Q8H [facility] PRN Reason: Protocol Last Admin: 02/27/18 10:57 Dose: 100 mls/hr Metoprolol Succinate (Toprol Xl) 100 mg PO BID [facility] Last Admin: 02/26/18 18:01 Dose: 100 mg Ondansetron HCl (Zofran Inj) 4 mg IVP Q8 PRN PRN Reason: PRN Nausea Last Admin: 02/23/18 15:09 Dose: 4 mg Prednisone (Prednisone Tab) 5 mg PO DAILY [facility] Last Admin: 02/27/18 10:51 Dose: 5 mg Sodium Bicarbonate (Sodium Bicarbonate Tab) 650 mg PO TID [facility] Last Admin: 02/27/18 10:51 Dose: 650 mg Tacrolimus (Prograf) 5 mg PO Q12 [facility] Last Admin: 02/27/18 10:50 Dose: 5 mg - Labs Labs: 02/25/18 07:51 05/31/18 07:08 PT 12.4 SECONDS (9.7-12.2) H 02/25/18 13:48 INR 1.1 02/25/18 13:48 - Constitutional Appears: Non-toxic, No Acute Distress, Chronically Ill - Head Exam Head Exam: NORMAL INSPECTION, NORMOCEPHALIC - Eye Exam Eye Exam: Normal appearance, PERRL - ENT Exam ENT Exam: Mucous Membranes Moist, Normal Exam - Neck Exam Neck Exam: Full ROM (rt sided shiley), Normal Inspection - Respiratory Exam Respiratory Exam: Decreased Breath Sounds, Rales, NORMAL BREATHING PATTERN - Cardiovascular Exam Cardiovascular Exam: REGULAR RHYTHM, RRR - GI/Abdominal Exam GI & Abdominal Exam: Distended, Soft, Normal Bowel Sounds (no tenderness over transplant kidney) - Extremities Exam Extremities Exam: Full ROM, Normal Inspection - Back Exam Back Exam: NORMAL INSPECTION - Neurological Exam Neurological Exam: Alert, Awake, Oriented x3 - Psychiatric Exam Psychiatric exam: Normal Affect, Normal Mood - Skin Skin Exam: Dry, Intact Assessment and Plan (1) -donor kidney transplant recipient Status: Acute (2) Dehydration Status: Acute (3) NATE (acute kidney injury) Status: Acute (4) History of kidney transplant Status: Acute (5) Urinary retention Status: Acute (6) DM type 2 (diabetes mellitus, type 2) Status: Chronic (7) HTN (hypertension) Status: Chronic - Assessment and Plan (Free Text) Assessment: # nate transplant kidney, oliguric - ? atn. ua w/ hematuria, marin sample. cultures negative renal US noted - maintain prograf and prednisone, FK dose lowered. follow level. one dose of solumedrol today. - hd today. -may need kidney biopsy? Will transfer to [facility] for further management. -check spep. # hypocalcemia check pth, phos. on calcitriol and po calcium # urology eval # low grade fever check blood cultures, repeat urine cultures. recommend broad spectrum antibiotic coverage
[2018-02-27] MEDS: Metoprolol Succinate 100 mg XL Tab PO SCH ×2 (11:35→20:02)
--- NOTE | 2018-02-27 11:48 | PCM.URO ---
Urology Progress Note - Objective Lab Studies: Reviewed (thanks for gu consult full note to be dictated) Lab Results Last 24 Hours: Laboratory Results - last 24 hr 02/25/18 02/26/18 02/26/18 07:51 13:49 14:20 Sodium 135 Potassium 4.8 Chloride 98 Carbon Dioxide 19 L Anion Gap 23 H BUN 36 H Creatinine 8.9 H* Est GFR ( Amer) 5 Est GFR (Non-Af Amer) 5 Random Glucose 178 H Calcium 6.9 L Urine Color Urine Clarity Urine pH Ur Specific [place] Urine Protein Urine Glucose (UA) Urine Ketones Urine Blood Urine Nitrate Urine Bilirubin Urine Urobilinogen Ur Leukocyte Esterase Urine WBC (Auto) Urine RBC (Auto) Urine WBC Clumps (Auto) Ur Squamous Epith Cells Urine Bacteria Urine Osmolality 271 L Ur Random Sodium 118 Tacrolimus (LC/MS/MS) 10.2 02/26/18 02/27/18 14:20 07:08 Sodium 136 Potassium 4.5 Chloride 99 Carbon Dioxide 18 L Anion Gap 23 H BUN 43 H Creatinine 10.5 H* Est GFR ( Amer) 5 Est GFR (Non-Af Amer) 4 Random Glucose 115 H Calcium 6.6 L Urine Color Red Urine Clarity Hazy Urine pH 7.0 Ur Specific [place] 1.014 Urine Protein 2+ H Urine Glucose (UA) 1+ Urine Ketones Negative Urine Blood 3+ H Urine Nitrate Negative Urine Bilirubin Negative Urine Urobilinogen Normal Ur Leukocyte Esterase 2+ H Urine WBC (Auto) 236 H Urine RBC (Auto) 1095 H Urine WBC Clumps (Auto) Many H Ur Squamous Epith Cells 2 Urine Bacteria Occ H Urine Osmolality Ur Random Sodium Tacrolimus (LC/MS/MS) Intake & Output: Intake & Output 02/26/18 02/27/18 02/27/18 18:59 06:59 18:59 Output Total 5 Balance -5 Output: Urine 5 Urethral (Bo) 5 Vital Signs: Vital Signs - 24 hr 02/26/18 02/26/18 02/27/18 16:02 17:30 00:00 Temperature 99.1 F 99.1 F Pulse Rate 92 H 90 80 Respiratory 20 20 Rate Blood Pressure 144/78 132/75 O2 Sat by Pulse 99 97 Oximetry 02/27/18 02/27/18 02/27/18 00:35 04:00 06:52 Temperature 100.2 F H Pulse Rate 87 86 Respiratory Rate Blood Pressure O2 Sat by Pulse Oximetry 02/27/18 08:54 Temperature 98.1 F Pulse Rate 99 H Respiratory 20 Rate Blood Pressure 159/86 H O2 Sat by Pulse 97 Oximetry
[2018-02-27] MEDS ORDERED: Calcium Carbonate 500 mg Chewable Antacid Tab PO SCH (14:00)
--- NOTE | 2018-02-27 18:26 | CP.PCM.PN ---
Subjective - Date & Time of Evaluation Date of Evaluation: 02/27/18 Time of Evaluation: 10:00 - Subjective Subjective: clinically same Objective - Vital Signs/Intake and Output Vital Signs (last 24 hours): Temp Pulse Resp BP Pulse Ox 99.8 F H 93 H 16 172/89 H 97 02/27/18 15:10 02/27/18 17:55 02/27/18 17:55 02/27/18 17:55 02/27/18 17:55 Intake and Output: 02/27/18 02/27/18 06:59 18:59 Intake Total 670 Output Total 5 2 Balance -5 668 - Medications Medications: Current Medications Albuterol/Ipratropium (Duoneb 3 Mg/0.5 Mg (3 Ml) Ud) 3 ml INH RQ6 [facility] Last Admin: 02/27/18 13:28 Dose: 3 ml Amlodipine Besylate (Norvasc) 10 mg PO DAILY [facility] Last Admin: 02/27/18 11:35 Dose: Not Given Aspirin (Aspirin Chewable) 81 mg PO DAILY [facility] Last Admin: 02/27/18 10:51 Dose: 81 mg Calcitriol (Rocaltrol) 0.5 mcg PO DAILY [facility] Calcium Carbonate (Tums) 500 mg PO TID [facility] Last Admin: 02/27/18 14:50 Dose: Not Given Hydralazine HCl (Apresoline) 50 mg PO BID [facility] Last Admin: 02/27/18 11:34 Dose: Not Given Aztreonam 500 mg/ Sodium (Chloride) 100 mls @ 100 mls/hr IVPB Q8H [facility] PRN Reason: Protocol Last Admin: 02/27/18 10:57 Dose: 100 mls/hr Metoprolol Succinate (Toprol Xl) 100 mg PO BID [facility] Last Admin: 02/27/18 11:35 Dose: Not Given Ondansetron HCl (Zofran Inj) 4 mg IVP Q8 PRN PRN Reason: PRN Nausea Last Admin: 02/23/18 15:09 Dose: 4 mg Prednisone (Prednisone Tab) 5 mg PO DAILY [facility] Last Admin: 02/27/18 10:51 Dose: 5 mg Sodium Bicarbonate (Sodium Bicarbonate Tab) 650 mg PO TID [facility] Last Admin: 02/27/18 14:50 Dose: Not Given Tacrolimus (Prograf) 5 mg PO Q12 [facility] Last Admin: 02/27/18 10:50 Dose: 5 mg - Labs Labs: 02/25/18 07:51 02/27/18 07:08 PT 12.4 SECONDS (9.7-12.2) H 02/25/18 13:48 INR 1.1 02/25/18 13:48 - Constitutional Appears: Well - Head Exam Head Exam: ATRAUMATIC, NORMAL INSPECTION, NORMOCEPHALIC - Eye Exam Eye Exam: EOMI, Normal appearance, PERRL Pupil Exam: NORMAL ACCOMODATION, PERRL - ENT Exam ENT Exam: Mucous Membranes Moist, Normal Exam - Neck Exam Neck Exam: Full ROM, Normal Inspection. absent: Lymphadenopathy - Respiratory Exam Respiratory Exam: Decreased Breath Sounds - Cardiovascular Exam Cardiovascular Exam: REGULAR RHYTHM, +S1, +S2 - GI/Abdominal Exam GI & Abdominal Exam: Soft, Diminished Bowel Sounds - Rectal Exam Rectal Exam: Deferred Assessment and Plan (1) Anuria Status: Acute (2) -donor kidney transplant recipient Status: Acute (3) Dehydration Status: Acute (4) Hyponatremia Status: Acute (5) Renal failure Status: Acute (6) NATE (acute kidney injury) Status: Acute (7) History of kidney transplant Status: Acute (8) Urinary retention Status: Acute (9) DM type 2 (diabetes mellitus, type 2) Status: Chronic (10) HTN (hypertension) Status: Chronic
[2018-02-27 19:25] VITALS: BP 183/88; PULSE 110; RESP 20; TEMP 98.5; O2SAT 98
[2018-02-28 10:54] LABS: ALPHA-1-GLOBULIN (PEP) 0.5 g/dL (0.2-0.3)
== END 2018-02-27 21:20 | disposition short-term general hospital (02) | DRG 683 ==
LOC: C.ER 09:01 → C.9E 14:19 → C.3T 19:30 → OBSVTOIN 02-24 18:14 → C.6T 02-25 13:49
PROVIDERS: ADMIT Internal Medicine Nephrology; ATTEND Internal Medicine Nephrology
PROC: 5A1D70Z Performance of Urinary Filtration, Intermittent, Less than 6 Hours Per Day (ICD-10-PCS; principal; 2018-02-25)
PROC: 05HM33Z Insertion of Infusion Device into Right Internal Jugular Vein, Percutaneous Approach (ICD-10-PCS; 2018-02-25)
PROC: 5A1D70Z Performance of Urinary Filtration, Intermittent, Less than 6 Hours Per Day (ICD-10-PCS; 2018-02-27)
DX: N17.0 Acute kidney failure with tubular necrosis (principal); M62.82 Rhabdomyolysis; E87.1 Hypo-osmolality and hyponatremia; I12.0 Hypertensive chronic kidney disease with stage 5 chronic kidney disease or end stage renal disease; N39.0 Urinary tract infection, site not specified; Z94.0 Kidney transplant status; E86.0 Dehydration; E11.22 Type 2 diabetes mellitus with diabetic chronic kidney disease; N18.6 End stage renal disease; R33.9 Retention of urine, unspecified; E83.51 Hypocalcemia; E66.9 Obesity, unspecified; Z68.38 Body mass index [BMI] 38.0-38.9, adult; Z80.0 Family history of malignant neoplasm of digestive organs